=== PATIENT | female | born 1940 | race Caucasian/White ===

== ENCOUNTER 2019-04-08 17:59 | Inpatient (IN) | payer OTHER ==
[~2019-04-08] VITALS: Ht 165.1 cm; Wt 85.7 kg
[2019-04-08 18:06] VITALS: BP_SYST 132
--- NOTE | 2019-04-08 18:06 | NUR ---
Pt arrived via ALS with [facility]. Pt triaged and placed in ED bed 2. Rails up. Pt placed on monitor, VSS.
--- NOTE | 2019-04-08 18:10 | NUR ---
Pt brought in by ALS ambulance. [facility] states that the patient last known well time was approx 8am per family. Family stated that they returned approx 530pm to find patient ALOC. [facility] states that pt was given glucagon en route due to blood sugar of 59 on scene and unable to obtain IV access. Pt arousable to speach, but is confused. Pt denies pain. Pt denies pain. Pt has small 1"x1" sore on anterior surface of ankle. Pt vss, resting in bed 2 attached to cardiac, pulse oximetry and bp monitor. Will continue to monitor.
--- NOTE | 2019-04-08 18:25 | NUR ---
ER Dr. MARQUEZ at bedside examining patient.
--- NOTE | 2019-04-08 18:30 | NUR ---
# 20 gauge angiocath placed to RIGHT WRIST. Use of asceptic technique. Opsite placed over site. Blood return noted. Blood for lab drawn from site. Flushed with 10 cc of normal saline. No evidence of infiltration noted. Patient tolerated well.
--- NOTE | 2019-04-08 18:47 | NUR ---
# 14 FR In and Out catheter with use of sterile technique. Immediate return of 250 ml CLOUDY YELLOW AND FOUL SMELLING URINE noted. Urine sample collected and sent to lab. Pt tolerated procedure WELL Patient unable to toilet self.
[2019-04-08 19:03] LABS: BASOPHILS % (AUTO) 0.6 % (0.0-2.0); HEMOGLOBIN 9.7 g/dL (12.0-16.0); LYMPHOCYTES # (AUTO) 0.4 K/uL (1.0-5.5); LYMPHOCYTES % (AUTO) 9.1 % (20.5-51.5); MEAN CORPUSCULAR HEMOGLOBIN 30 pg (27-31); MEAN CORPUSCULAR HGB CONC 32 % (32-36); MEAN CORPUSCULAR VOLUME 92 fL (79.0-98.0); MONOCYTES # (AUTO) 0.1 K/uL (0.0-1.0); MONOCYTES % (AUTO) 2.3 % (1.7-9.3); NEUTROPHILS # (AUTO) 3.9 K/uL (1.8-7.7); PLATELET COUNT (AUTO) 265 K/uL (130-430); RED BLOOD CELL COUNT(AUTO) 3.27 MIL/uL (4.2-6.2); RED CELL DISTRIBUTION WIDTH 16.2 % (9.0-15.0); WHITE BLOOD COUNT (AUTO) 4.4 K/uL (4.8-10.8)
[2019-04-08 19:12] LABS: ANION GAP 11 (5-15); CALCIUM 8.8 mg/dL (8.4-11.0); CHLORIDE 105 mmol/L (98-107); CREATININE 3.34 mg/dL (0.55-1.30); GLUCOSE 117 mg/dL (70-99); POTASSIUM 3.8 mmol/L (3.5-5.1); SODIUM SERUM 138 mmol/L (136-145); UREA NITROGEN, BLOOD 60 mg/dL (8-21)
[2019-04-08 19:15] LABS: PROTHROMBIN TIME 10.1 SECS (9.5-12.5)
[2019-04-08 19:16] LABS: BILIRUBIN,URINE NEGATIVE (NEGATIVE); BLOOD, URINE 3+ (NEGATIVE); CLARITY/URINE CLOUDY (CLEAR); COLOR,URINE YELLOW (YELLOW); GLUCOSE,URINE NEGATIVE (NEGATIVE); KETONES,URINE NEGATIVE (NEGATIVE); LEUKOCYTE ESTERASE ,URINE 3+ (NEGATIVE); NITRITE, URINE NEGATIVE (NEGATIVE); PH,URINE 5.5 (5.0-8.0); PROTEIN URINE 2+ (NEGATIVE); UROBILINOGEN,URINE 0.2 (0.2-1.0)
[2019-04-08 19:18] LABS: ALANINE AMINOTRANSFERASE 14 U/L (12-78); ALBUMIN 2.8 g/dL (3.4-4.8); ASPARTATE AMINOTRANSFERASE 15 U/L (10-37); TOTAL BILIRUBIN 0.2 mg/dL (0.0-1.0)
[2019-04-08] MEDS ORDERED: cefTRIAXone 1 GM IVPB PREMIX 50 ML IV ONE (19:30)
--- NOTE | 2019-04-08 19:30 | NUR ---
Pt son visited shortly and had to leave, left phone number for contact [phone] (Jasper)
[2019-04-08 19:44] LABS: BACTERIA,URINE MANY /HPF (None Seen); WBC,URINE >100 /HPF (0-3)
[2019-04-08 19:45] LABS: MUCUS,URINE None Seen /LPF (None Seen)
[2019-04-08] MEDS ORDERED: GABA-529 PO (19:57)
--- NOTE | 2019-04-08 19:57 | NUR ---
Medication reconciliation completed with information provided by Patient's son. Patient does not know dosages of medications. Will call at a later time with dosages. Any prior medication reconciliation on file was reviewed and corrected.
--- NOTE | 2019-04-08 20:03 | NUR ---
Patient will be admitted to care of Dr. Duncan. Admitted to MedSurg unit. Will go to room 102A. Belongings list completed. Summary report printed. Report will be given at bedside.
--- NOTE | 2019-04-08 20:10 | NUR ---
Report given bedside to IBIS Dorsey. All care endorsed.
--- NOTE | 2019-04-08 20:31 | NUR ---
ADMISSION NOTES ADMITTED PATIENT FROM ER 78 Y/O FEMALE FOR RENAL FAILURE. PATIENT ORIENTED TO NAME ONLY AT THIS TIME. PATIENT ORIENTED TO ROOM, CALL LIGHT SYSTEM AND BED CONTROLS. BED IN LOWEST LOCKED POSITION WITH ALARM ON. CALL LIGHT WITH IN REACH. Addendum: 04/08/19 at 2033 by Racheal Navarro RN WRONG TIME PATIENT CAME @ 2011
[2019-04-08 20:34] VITALS: BP_SYST 119
[2019-04-08] MEDS ORDERED: MAGNESIUM SULFATE 50 ML IV PRN (20:45)
[2019-04-08] MEDS ORDERED: ZOLPIDEM TARTRATE 5 MG TABLET PO PRN (20:45)
[2019-04-08] MEDS ORDERED: LORazepam 2 MG/ML VIAL IVP PRN (20:45)
[2019-04-08] MEDS ORDERED: POTASSIUM CHLORIDE 20 MEQ TAB.PRT.SR PO PRN (20:45)
[2019-04-08] MEDS ORDERED: DOCUSATE SODIUM 100 MG CAPSULE PO PRN (20:45)
[2019-04-08] MEDS ORDERED: ONDANSETRON HCL 4 MG/2 ML VIAL IVP PRN (20:45)
[2019-04-08] MEDS ORDERED: MORPHINE 2 MG/ML INJ. SYRINGE IVP PRN ×2 (20:45)
[2019-04-08] MEDS ORDERED: ACETAMINOPHEN 325 MG TABLET PO PRN (20:45)
[2019-04-08] MEDS ORDERED: MUPIROCIN 2% TOPICAL OINTMENT 22 GM NS PRN (20:45)
--- NOTE | 2019-04-08 20:59 | NUR ---
CONSULTATION PAGED/CALLED Reason for Consultation: RENAL FAILURE Person Who was Notified: SAMANTA Consulting Physician: ISSAC DOLAN IS CONTINUOUS PICKLING LINE PICKLER Ophthalmic Tech Specialty: Ordering Physician: FREDDY
--- NOTE | 2019-04-08 21:30 | NUR ---
NOTES: report given to me by nurse Racheal, admission from ER for altered level opf consciousness, low blood sugar Diagnosis of Renal Failure. pt. sleeping at this time, no acute distress. call light at bedside.
[2019-04-08] MEDS: D5NS 1,000 ML IV SCH (21:39)
[2019-04-08] MEDS: HEPARIN SODIUM,PORCINE 5000 UNITS/ML VIAL SUBCUT SCH (21:48)
--- NOTE | 2019-04-08 22:00 | NUR ---
NOTES: pt. awakened, reoriented. verbally responsive. BS checked 81, orange juice and jello given,able to tolerate. started on IVF with D5 NS @ 7occ/hr via rt. hand wrist area, ecchymosis on both hands/arms, moist wound on left leg and rt. scab on rt. foot, pictures taken. noted generalized weakness. maintain bed rest, unable to ambulate. call light at bedside, on fall risk precautions.
--- NOTE | 2019-04-08 23:46 | NUR ---
NOTES: pt. calm and sleeping when checked. HOB slight elevated. IVF patent and infusing well.
[2019-04-09 00:13] VITALS: BP_SYST 130
--- NOTE | 2019-04-09 01:47 | NUR ---
NOTES: pt. sleeping when made rounds, no acute distress. fall risk precautions, call light within reach.
--- NOTE | 2019-04-09 04:19 | NUR ---
NOTES: remain sleeping. continue to monitor.
--- NOTE | 2019-04-09 05:00 | NUR ---
NOTES: pt. incontinent, kept dry, able to turn to sides. still disoriented, oriented to place, did not know what happened. IV site redress with transparent dressing, flushing good. call light within reach.
--- NOTE | 2019-04-09 06:00 | NUR ---
NOTES: pt. went back to sleep, no complaints. needs attended.
[2019-04-09 06:18] LABS: BASOPHILS % (AUTO) 0.5 % (0.0-2.0); EOSINOPHILS % (AUTO) 0.6 % (0.0-4.0); HEMATOCRIT 26.3 % (36-48); HEMOGLOBIN 8.6 g/dL (12.0-16.0); LYMPHOCYTES # (AUTO) 1.2 K/uL (1.0-5.5); LYMPHOCYTES % (AUTO) 21.9 % (20.5-51.5); MEAN CORPUSCULAR HEMOGLOBIN 30 pg (27-31); MEAN CORPUSCULAR HGB CONC 33 % (32-36); MEAN CORPUSCULAR VOLUME 91 fL (79.0-98.0); MONOCYTES # (AUTO) 0.4 K/uL (0.0-1.0); NEUTROPHILS # (AUTO) 3.7 K/uL (1.8-7.7); PLATELET COUNT (AUTO) 241 K/uL (130-430); RED BLOOD CELL COUNT(AUTO) 2.88 MIL/uL (4.2-6.2); RED CELL DISTRIBUTION WIDTH 16.2 % (9.0-15.0); WHITE BLOOD COUNT (AUTO) 5.3 K/uL (4.8-10.8)
[2019-04-09 06:32] LABS: ANION GAP 12 (5-15); CALCIUM 8.2 mg/dL (8.4-11.0); CHLORIDE 109 mmol/L (98-107); CREATININE 3.11 mg/dL (0.55-1.30); POTASSIUM 3.8 mmol/L (3.5-5.1); SODIUM SERUM 142 mmol/L (136-145); UREA NITROGEN, BLOOD 61 mg/dL (8-21)
--- NOTE | 2019-04-09 06:45 | NUR ---
CLOSING NOTES; BS checked 50, apple juice with sugar given, pt. asymptomatic. will recheck in 15 min.
[2019-04-09 06:58] LABS: GLUCOSE 48 mg/dL (70-99)
--- NOTE | 2019-04-09 07:13 | NUR ---
NOTES: rechecked BS 65, pt. awake, gave milk with packets of sugar, Dr. Cruz here and aware of low BS. continue to monitor, will endorse to day shift.
--- NOTE | 2019-04-09 07:34 | NUR ---
Initial note: Patient is awake, alert, oriented x1, resting on bed comfortable comfortable, no sign of distress. On D5 NS IVF at 70 ml/hr infusing well via right wrist #20G, no sign of infiltration. Will continue monitor.
--- NOTE | 2019-04-09 07:38 | NUR ---
Nephro round: Dr. Cruz makes round and has new orders, including increase IVF to 100 ml/hr and change diet to regular diet.
[2019-04-09 07:44] VITALS: BP_SYST 135
[2019-04-09] MEDS: HEPARIN SODIUM,PORCINE 5000 UNITS/ML VIAL SUBCUT SCH ×2 (08:40→21:08)
--- NOTE | 2019-04-09 09:32 | NUR ---
Nutrition Update Vivek Scale 14 noted. Pt admitted for renal failure Diet: regular BMI: 36.9kg/m2 RD to follow per nutrition care standards.
--- NOTE | 2019-04-09 10:24 | NUR ---
round: Dr. Duncan makes round and has new orders. Inform him for Accu check after breakfast =163, and will recheck before lunch time.
[2019-04-09] MEDS: D5NS 1,000 ML IV SCH ×2 (10:42→20:56)
[2019-04-09] MEDS: INSULIN REGULAR, HUMAN 100 UNITS/ML, 10 ML VIAL (humuLIN R) SUBCUT PRN ×2 (11:37→21:07)
[2019-04-09 12:00] VITALS: BP_SYST 131
--- NOTE | 2019-04-09 13:00 | NUR ---
PT: Physical therapist has seen the patient . Patient is maximum assist.
--- NOTE | 2019-04-09 16:00 | NUR ---
PM care: Patient has BM incontinent. Give her a complete bed bath, and linen changed.
[2019-04-09 16:43] VITALS: BP_SYST 158
--- NOTE | 2019-04-09 18:32 | NUR ---
Closing note: Patient is stable, tolerating regular diet well, BS controlled. On D5 NS IVF at 100 ml/hr infusing well, no sign of infiltration.
[2019-04-09 19:00] VITALS: BP_SYST 108
--- NOTE | 2019-04-09 19:15 | NUR ---
change of shift.p.presents quiescent affect;calm,viewing tv programming.pt.presents loc;confused.pt.present diabetic med-hx; pt.has presented low blood glucose values.diet status changed;regular diet;foods;preventive measure.to continue to monitor blood glucose:ac/hs.iv fluids infusing.general status stable.respiratory status stable@room air;unlabored.call light/telephone w/in reach of the pt.
[2019-04-09 20:00] VITALS: BP_SYST 108
--- NOTE | 2019-04-09 20:00 | NUR ---
pt.assessed.v/s assessed:values w/in normal limits.i have posted q's to the pt.pt.presents no verbal response.i have posited the q's austrian/south korean.pt.assessed for cleanlines.pt.repositioned./iv access;intact;patent.iv fluids infusing.general status stable,respiratory status stable;unlabored.02-sat+96%.call light/telephone placed w/in reach of the pt.
--- NOTE | 2019-04-09 20:30 | NUR ---
i have assessed the blood glucose:value;213mg/dl.
[2019-04-09] MEDS: cefTRIAXone 1 GM in D5W 50 ML IV SCH (20:56)
--- NOTE | 2019-04-09 21:00 | NUR ---
2100pmedications administered.i have administered insulin;regular;4-units 2/t sliding scale parameters.i have administered. heparin;5ku sq.
--- NOTE | 2019-04-09 22:00 | NUR ---
pt.assessed.pt.presents quiescent affect;calm,somnolent.flacc;pain mgx.pt.absent facial grimaces/body posturing.pt.assessed for cleanliness.pt.repositioned.iv access;intact;patent.iv fluids infusing.general status stable.respiratory status stable;unlabored.call light/telephone placed w/in reach of the pt.
--- NOTE | 2019-04-10 | NUR ---
pt.assessed.v/s assessed;values w/in normal limits.pt.presents quiescent affect;calm,somnolent;flacc;pain mgx;pt.absent facial grimaces/ body posturing.pt.assessed for cleanliness.pt.repositioned.iv access;intact;patent.general status stable.respiratory status stable;unlabored.call light/telephone placed w/in reach of the pt.
[2019-04-10 00:02] VITALS: BP_SYST 122
--- NOTE | 2019-04-10 02:00 | NUR ---
pt.assessed.pt.presents quiescent affect;calm,somnolent.pt.assessed for cleanliness.pt.repositioned.iv access;intact;patent; iv fluids infusing general status stable.respiratory status stable.unlabored call light/telephone placed w/in reach of the pt. Addendum: 04/10/19 at 0219 by Bakari Aguilar RN per flacc;pain mgx;pt.absent facial grimaces/body posturing.
--- NOTE | 2019-04-10 04:00 | NUR ---
pt.assessed.pt.presents quiescent affect;calm,somnolent.pt.assessed for cleanliness.pt.repositioned.iv access;intact;patent. iv fluids infusing. general status stable.respiratory status stable;unlabored call light/telephone placed w/in reach of the pt.
[2019-04-10] MEDS: D5NS 1,000 ML IV SCH ×2 (05:24→08:31)
--- NOTE | 2019-04-10 06:19 | NUR ---
pt.assessed.pt.presents quiescent affect;calm,somnolent.pt.repositioned,blood glucose value:90mg/dl. iv fluids infusing.call light/telephone placed w/in reach of the pt.
[2019-04-10 07:05] LABS: ANION GAP 10 (5-15); CHLORIDE 114 mmol/L (98-107); CREATININE 2.79 mg/dL (0.55-1.30); GLUCOSE 82 mg/dL (70-99); POTASSIUM 3.7 mmol/L (3.5-5.1); SODIUM SERUM 144 mmol/L (136-145); UREA NITROGEN, BLOOD 50 mg/dL (8-21)
[2019-04-10 07:09] LABS: BASOPHILS % (AUTO) 1.2 % (0.0-2.0); EOSINOPHILS # (AUTO) 0.1 K/uL (0.0-0.4); EOSINOPHILS % (AUTO) 2.8 % (0.0-4.0); HEMATOCRIT 27.1 % (36-48); HEMOGLOBIN 8.8 g/dL (12.0-16.0); LYMPHOCYTES % (AUTO) 29.5 % (20.5-51.5); MEAN CORPUSCULAR HEMOGLOBIN 30 pg (27-31); MEAN CORPUSCULAR HGB CONC 32 % (32-36); MEAN CORPUSCULAR VOLUME 91 fL (79.0-98.0); MONOCYTES # (AUTO) 0.2 K/uL (0.0-1.0); NEUTROPHILS # (AUTO) 2.1 K/uL (1.8-7.7); NEUTROPHILS % (AUTO) 59.5 % (40.0-70.0); PLATELET COUNT (AUTO) 231 K/uL (130-430); RED BLOOD CELL COUNT(AUTO) 2.97 MIL/uL (4.2-6.2); RED CELL DISTRIBUTION WIDTH 16.5 % (9.0-15.0); WHITE BLOOD COUNT (AUTO) 3.5 K/uL (4.8-10.8)
--- NOTE | 2019-04-10 08:00 | NUR ---
NEURO Patient alert/oriented x2 ,denies any pain , on continues IV hydration due to elevated BUN/Creatinine., plan of care , safety discussed with patient, needs attended.
[2019-04-10 08:08] VITALS: BP_SYST 140
[2019-04-10] MEDS: HEPARIN SODIUM,PORCINE 5000 UNITS/ML VIAL SUBCUT SCH ×2 (08:25→20:35)
--- NOTE | 2019-04-10 10:00 | NUR ---
Wound care left lower leg completed denies any pain, documented in the flow sheet.
[2019-04-10] MEDS: INSULIN REGULAR, HUMAN 100 UNITS/ML, 10 ML VIAL (humuLIN R) SUBCUT PRN ×3 (11:34→20:45)
--- NOTE | 2019-04-10 12:10 | NUR ---
Received report from Carey who endorsed patient to me, patient is resting in bed, eyes closed breathing easy and nonlabored, IV fluids running, fall/safety precautions in place.
[2019-04-10 13:02] VITALS: BP_SYST 155
--- NOTE | 2019-04-10 13:57 | NUR ---
CONSULTATION PAGED/CALLED Reason for Consultation: HYDRONEPHROSIS Person Who was Notified: SPOKE TO RICHARD FROM OFFICE. Consulting Physician: [employer] Inspector Specialty: UROLOGY Ordering Physician:
--- NOTE | 2019-04-10 14:04 | NUR ---
Dietitian Recommendations * Recommend [facility] diet w/ Glucerna BID (ONS provides 440 kcal/day, 20 gm protein/day) LEEANNE, RD Please refer to Nutrition Assessment foe details. Addendum: 04/10/19 at [address] Amended: Links added.
--- NOTE | 2019-04-10 14:30 | NUR ---
rounds patient is resting in bed, patient asked for chocolate milk but I told her that the cafeteria does not have any, patient verbalized and said she doesn't need anything else at this time, IV fluids running, fall/safety precautions in place.
--- NOTE | 2019-04-10 15:10 | NUR ---
spoke to REYNA Gan in regards to urology consult, gave him information on patient, he said he will call back to see if they accept the patient or not.
--- NOTE | 2019-04-10 16:57 | NUR ---
spoke to Dr Duncan in regards to the urology consult being denies, informed me to update Dr Vargas on the response. Addendum: 04/10/19 at 1701 by Muna Fisher RN Dr Vargas called back updated her on the urology response, I also informed her about the urine culture results, no new orders.
[2019-04-10 17:08] VITALS: BP_SYST 158
--- NOTE | 2019-04-10 17:10 | NUR ---
accuchek accuchek done and sliding scale needed at this time, patient verbalized understanding, patient tolerated well, no other needs at this time, fall/safety precautions in place.
--- NOTE | 2019-04-10 18:42 | NUR ---
CLOSING NOTE patient is resting in bed, IV fluids running, no signs of distress, no needs at this time, fall/safety precautions in place, will endorse report to noc shift nurse to continue with care, patient's urology consult was denied and Dr Duncan and Dr Vargas are aware of it.
--- NOTE | 2019-04-10 19:10 | NUR ---
CHANGE OF SHIFT; pt. awake, alert but still disoriented. follows simple commands. maintained bed rest. IVF via rt. arm. denies any pain at this time, fall risk precautions, bed alarm on, call light at bedside. will reassess later.
[2019-04-10 20:30] VITALS: BP_SYST 148
--- NOTE | 2019-04-10 20:30 | NUR ---
NOTES: remains awake, on high fowlers position. reoriented, moves upper extremities but weak on lower extremities. bruising on both arms/hands. left lower ant calf with wound, and scab on rt.foot. IVF patent. pt. repositioned.
[2019-04-10] MEDS: cefTRIAXone 1 GM in D5W 50 ML IV SCH (20:33)
--- NOTE | 2019-04-10 21:00 | NUR ---
NOTES: BS checked 195 with sliding scale coverage. due meds given.
--- NOTE | 2019-04-10 22:00 | NUR ---
NOTES: pt. incontinent of urine, changed and kept dry. condition observed.
[2019-04-10 22:38] VITALS: BP_SYST 145
--- NOTE | 2019-04-11 00:15 | NUR ---
NOTES: pt. sleeping when checked, continue to monitor.
--- NOTE | 2019-04-11 02:30 | NUR ---
NOTES: pt. repositioned, HOB pretty elevated. awakened and went back to sleep.
[2019-04-11] MEDS: D5NS 1,000 ML IV SCH ×2 (03:07→11:34)
--- NOTE | 2019-04-11 04:08 | NUR ---
NOTES: condition unchanged, continue to monitor. IVF patent.
--- NOTE | 2019-04-11 06:00 | NUR ---
NOTES: repositioned and went back to sleep, needs attended.
--- NOTE | 2019-04-11 06:36 | NUR ---
CLOSING NOTES; pt. still sleeping, BS checked 106, no sliding scale needed. IVF patent. no acute distress. turn to sides. for further care and assistance. call light at bedside. bed alarm on. fall precautions in place.
--- NOTE | 2019-04-11 07:35 | NUR ---
opening note patient is resting in bed, patient able to state name but not , assessment completed, educated front office spec light system and plan of care, patient nodded head and said "okay", IV fluids running, no signs of distress, no needs addressed at this time, fall/safety precautions in place.
[2019-04-11 08:04] VITALS: BP_SYST 148
[2019-04-11] MEDS: HEPARIN SODIUM,PORCINE 5000 UNITS/ML VIAL SUBCUT SCH ×2 (08:18→20:43)
[2019-04-11 08:27] LABS: EOSINOPHILS # (AUTO) 0.1 K/uL (0.0-0.4); EOSINOPHILS % (AUTO) 2.6 % (0.0-4.0); HEMATOCRIT 26.5 % (36-48); HEMOGLOBIN 8.6 g/dL (12.0-16.0); LYMPHOCYTES # (AUTO) 0.9 K/uL (1.0-5.5); LYMPHOCYTES % (AUTO) 26.3 % (20.5-51.5); MEAN CORPUSCULAR HEMOGLOBIN 30 pg (27-31); MEAN CORPUSCULAR HGB CONC 32 % (32-36); MEAN CORPUSCULAR VOLUME 92 fL (79.0-98.0); MONOCYTES # (AUTO) 0.3 K/uL (0.0-1.0); MONOCYTES % (AUTO) 7.4 % (1.7-9.3); NEUTROPHILS # (AUTO) 2.2 K/uL (1.8-7.7); NEUTROPHILS % (AUTO) 62.7 % (40.0-70.0); PLATELET COUNT (AUTO) 213 K/uL (130-430); RED CELL DISTRIBUTION WIDTH 16.5 % (9.0-15.0); WHITE BLOOD COUNT (AUTO) 3.5 K/uL (4.8-10.8)
[2019-04-11 08:55] LABS: ANION GAP 9 (5-15); CALCIUM 7.9 mg/dL (8.4-11.0); CHLORIDE 116 mmol/L (98-107); CREATININE 2.53 mg/dL (0.55-1.30); GLUCOSE 120 mg/dL (70-99); POTASSIUM 3.8 mmol/L (3.5-5.1); SODIUM SERUM 146 mmol/L (136-145); UREA NITROGEN, BLOOD 40 mg/dL (8-21)
[2019-04-11] MEDS ORDERED: METO25TA6 PO (09:29)
[2019-04-11] MEDS: METOPROLOL TARTRATE 25 MG TABLET PO SCH ×2 (09:33→20:43)
[2019-04-11] MEDS ORDERED: cefTRIAXone 1 GM IVPB PREMIX 50 ML IV ONE (09:45)
--- NOTE | 2019-04-11 10:35 | NUR ---
called the patient's son to inform him that the patient can be discharged today, the son told me that he is out of state until tomorrow and he is the only one that can pick her up, CM and Dr Duncan were made aware of this and Dr Duncan said to hold discharge until tomorrow when the son can pick her up, I informed the patient that I talked to her son, no other needs at this time.
--- NOTE | 2019-04-11 10:35 | NUR ---
yard hostler: Nurse Muna aware of discharge order after 3rd dose of IV Rocephin-I requested Muna to call family to make them aware of discharge-Muna called me back to inform me son is out of town-no other family available-unsafe discharge to send pt home alone-Nurse Toro will update Dr. Duncan.
[2019-04-11] MEDS: INSULIN REGULAR, HUMAN 100 UNITS/ML, 10 ML VIAL (humuLIN R) SUBCUT PRN ×3 (11:37→20:49)
--- NOTE | 2019-04-11 12:26 | NUR ---
rounds patient is eating her lunch, IV fluids running, no needs addressed at this time, fall/safety precautions in place.
[2019-04-11 12:52] VITALS: BP_SYST 153
[2019-04-11] MEDS: D5/0.45 NS 1,000 ML IV SCH (13:32)
--- NOTE | 2019-04-11 14:34 | NUR ---
rounds patient is resting in bed, IV fluids running, no signs of distress, no needs addressed at this time, fall/safety precautions in place.
--- NOTE | 2019-04-11 16:38 | NUR ---
patient is resting in bed IV fluids running, no signs of distress, no needs addressed at this time, fall/safety precautions in place.
[2019-04-11 17:01] VITALS: BP_SYST 158
--- NOTE | 2019-04-11 19:22 | NUR ---
CLOSING NOTE patient is resting in bed, IV fluids running, no signs of distress, no needs at this time, fall/safety precautions in place, will endorse report to [facility] shift nurse to continue with care and patient will be discharged tomorrow when the son comes back, a new urology consult was put for Dr Olivarez because Dr Mares denied the consult because he cannot follow up with patient, Dr Phillip is aware.
--- NOTE | 2019-04-11 19:25 | NUR ---
CHANGE OF SHIFT; pt. awake, alert, resting , no acute distress. safety measures in place. bed alarm on, call light within reach.
[2019-04-11] MEDS: cefTRIAXone 1 GM in D5W 50 ML IV SCH (20:15)
[2019-04-11 20:30] VITALS: BP_SYST 167
--- NOTE | 2019-04-11 20:30 | NUR ---
NOTES: pt. awake, alert, reoriented. IVF infusing via rt. forearm, able to move extremities but pretty weak. noted bruising on both arms, and left leg wound dressing intact. repositioned.
--- NOTE | 2019-04-11 21:30 | NUR ---
NOTES: BS checked with sliding scale coverage. due po med taken well. no complaints.
--- NOTE | 2019-04-11 23:00 | NUR ---
NOTES: condition unchanged. dozing on and off.
[2019-04-11 23:41] VITALS: BP_SYST 155
[2019-04-12] MEDS: D5/0.45 NS 1,000 ML IV SCH ×3 (00:22→21:09)
--- NOTE | 2019-04-12 00:30 | NUR ---
NOTES: made rounds and pt. sleeping. IV bag changed. bed alarm on.
--- NOTE | 2019-04-12 02:44 | NUR ---
NOTES: condition unchanged, continue to monitor.
--- NOTE | 2019-04-12 04:28 | NUR ---
NOTES: pt. sleeping when checked. no complaints manifested.
--- NOTE | 2019-04-12 05:30 | NUR ---
NOTES: am care and kristy care done, incontinent of urine. repositioned. IVF patent. no complaints manifested. safety measures in place. bed alarm on.
--- NOTE | 2019-04-12 06:30 | NUR ---
CLOSING NOTES; BS checked 127, no sliding scale coverage. slightly awakened but went back to sleep. no complaints of discomfort. kept comfortable with blanket. IV site patent and intact with same IVF of D5 1/2 NS @ 100 cc/hr. on room air. for further care and assistance. schedule to go home today, will be pickle maker by her son. discharge instructions initiated, will endorse to day shift. call light within reach.
[2019-04-12 07:05] LABS: BASOPHILS % (AUTO) 1.2 % (0.0-2.0); EOSINOPHILS # (AUTO) 0.1 K/uL (0.0-0.4); EOSINOPHILS % (AUTO) 3.1 % (0.0-4.0); HEMATOCRIT 26.3 % (36-48); HEMOGLOBIN 8.6 g/dL (12.0-16.0); LYMPHOCYTES # (AUTO) 1.2 K/uL (1.0-5.5); LYMPHOCYTES % (AUTO) 31.7 % (20.5-51.5); MEAN CORPUSCULAR HEMOGLOBIN 30 pg (27-31); MEAN CORPUSCULAR HGB CONC 33 % (32-36); MEAN CORPUSCULAR VOLUME 92 fL (79.0-98.0); MONOCYTES # (AUTO) 0.3 K/uL (0.0-1.0); NEUTROPHILS # (AUTO) 2.1 K/uL (1.8-7.7); PLATELET COUNT (AUTO) 201 K/uL (130-430); RED BLOOD CELL COUNT(AUTO) 2.86 MIL/uL (4.2-6.2); RED CELL DISTRIBUTION WIDTH 16.4 % (9.0-15.0); WHITE BLOOD COUNT (AUTO) 3.8 K/uL (4.8-10.8)
--- NOTE | 2019-04-12 07:20 | NUR ---
OPENING NOTES: RECEIVED PATIENT FROM SOFTWARE QA MANAGER NURSE. PATIENT IS ASLEEP IN BED. NO SIGNS OF DISTRESS OR SHORTNESS OF BREATH. PATIENT IS TOLERATING OXYGEN AT ROOM AIR. IV SITE IS PATENT WITH NO SIGNS OF INFILTRATION AND RUNNING FLUIDS ORDERED. PATIENT IN STABLE CONDITION. SAFETY, FALL AND ASPIRATION PRECAUTIONS ARE IN PLACE. BED LOCKED IN LOWEST POSITION WITH CALL LIGHT IN REACH. WILL CONTINUE TO MONITOR PATIENT FOR ANY CHANGES.
[2019-04-12 07:31] LABS: ANION GAP 10 (5-15); CALCIUM 7.9 mg/dL (8.4-11.0); CHLORIDE 113 mmol/L (98-107); CREATININE 2.32 mg/dL (0.55-1.30); GLUCOSE 132 mg/dL (70-99); POTASSIUM 3.7 mmol/L (3.5-5.1); SODIUM SERUM 144 mmol/L (136-145); UREA NITROGEN, BLOOD 34 mg/dL (8-21)
[2019-04-12 08:27] VITALS: BP_SYST 178
[2019-04-12] MEDS: METOPROLOL TARTRATE 25 MG TABLET PO SCH ×2 (08:40→21:06)
[2019-04-12] MEDS: HEPARIN SODIUM,PORCINE 5000 UNITS/ML VIAL SUBCUT SCH ×2 (08:44→21:11)
--- NOTE | 2019-04-12 10:20 | NUR ---
RN ROUNDS: PATIENT IS ASLEEP IN BED. NO SIGNS OF DISTRESS OR SHORTNESS OF BREATH NOTED. PATIENT IN STABLE CONDITION. WILL CONTINUE TO MONITOR PATIENT FOR ANY CHANGES.
[2019-04-12] MEDS: INSULIN REGULAR, HUMAN 100 UNITS/ML, 10 ML VIAL (humuLIN R) SUBCUT PRN ×2 (11:56→21:11)
[2019-04-12 12:07] VITALS: BP_SYST 151
--- NOTE | 2019-04-12 12:30 | NUR ---
RN ROUNDS: PATIENT IS AWAKE AND ALERT x1. PATIENT DENIES ANY PAIN AT THE MOMENT. NO SIGNS OF DISTRESS OR SHORTNESS OF BREATH NOTED. PATIENT IN STABLE CONDITION. WILL CONTINUE TO MONITOR PATIENT FOR ANY CHANGES. Addendum: 04/12/19 at 1400 by Zoë Cano RN provided pt with reality orientation
--- NOTE | 2019-04-12 14:20 | NUR ---
RN ROUNDS: PATIENT IS AWAKE AND ALERT x 1. PATIENT DENIES ANY PAIN. NO SIGNS OF DISTRESS OR SHORTNESS OF BREATH NOTED. PATIENT IN STABLE CONDITION. WILL CONTINUE TO MONITOR PATIENT FOR ANY CHANGES.
[2019-04-12 14:33] VITALS: BP_SYST 163
--- NOTE | 2019-04-12 16:30 | NUR ---
RN ROUNDS: PATIENT IS AWAKE AND ALERT x1 WATCHING TELEVISION IN BED. PATIENT INFORMED THAT HER SON WILL BE COMING TO PICK HER UP TONIGHT. PATIENT DENIES ANY PAIN AT THE MOMENT. NO SIGNS OF DISTRESS OR SHORTNESS OF BREATH. PATIENT IN STABLE CONDITION. WILL CONTINUE TO MONITOR PATIENT FOR ANY CHANGES.
[2019-04-12 16:35] VITALS: BP_SYST 143
--- NOTE | 2019-04-12 17:52 | NUR ---
PHYSICAL THERAPY CO-SIGN The Physical Therapy Progress Notes documented by Document Management Analyst have been reviewed. Reviewed/Co-Signed by: Colleen Buchanan PT Documentation Done by:SADI MCDONOUGH CONSUMER RECRUITER POC REVIEWED W/ CONSUMER RECRUITER; WILL BENEFIT W/ P.T. POST ACUTE STAY 04/12/19 Hgb=8.6 Addendum: 04/12/19 at 1753 by Colleen Buchanan PT Amended: Links added.
--- NOTE | 2019-04-12 18:50 | NUR ---
CLOSING NOTES: PATIENT IS AWAKE AND ALERT x1 IN BED. PATIENT DENIES ANY PAIN. NO SIGNS OF DISTRESS OR SHORTNESS OF BREATH NOTED. IV SITE IS PATENT WITH NO SIGNS OF INFILTRATION. PATIENT IS TOLERATING OXYGEN AT ROOM AIR. PATIENT IN STABLE CONDITION. SAFETY, FALL AND ASPIRATION PRECAUTIONS ARE IN PLACE. BED LOCKED IN LOWEST POSITION WITH CALL LIGHT IN REACH. WILL ENDORSE PATIENT CARE TO ONCOMING POLYTECHNIC REGISTRAR NURSE.
[2019-04-12] MEDS: cefTRIAXone 1 GM in D5W 50 ML IV SCH (19:37)
[2019-04-12 20:13] VITALS: BP_SYST 151
--- NOTE | 2019-04-12 21:41 | NUR ---
Spoke with patient's son: Patient's son Jasper Gracia was called at [phone] for an estimated pick-up time. Son stated that he is currently driving back from [place] and is in [place], still 2 hrs away from [place]. He asked if it was possible to pick his mother up first thing in the morning tomorrow. Son was informed that insurance will not cover his mother's hospital stay past 12AM, and that the remainder of the stay will be paid out of pocket. Son stated that he will do his best to arrive before 12AM.
--- NOTE | 2019-04-13 00:10 | NUR ---
D/C Patient Patient son given medication reconciliation form and D/C instructions. Exit Care provided. Patient verbalized understanding. MD discussed with patient the results and treatment provided. Dicharged to home via wheelchair. Patient in stable condition, ID band removed. IV catheter removed, intact and dressing applied, no active bleeding. Patient educated on pain management. All belongings sent with patient.
== END 2019-04-13 00:10 | disposition home or self-care (01) | DRG 682 ==
LOC: SED 17:59 → SMU 20:00
PROVIDERS: ADMIT General Practice; ATTEND General Practice
DX: N17.0 Acute kidney failure with tubular necrosis (principal); E43 Unspecified severe protein-calorie malnutrition; E11.649 Type 2 diabetes mellitus with hypoglycemia without coma; N13.6 Pyonephrosis; F02.80 Dementia in other diseases classified elsewhere, unspecified severity, without behavioral disturbance, psychotic disturbance, mood disturbance, and anxiety; E66.9 Obesity, unspecified; G30.9 Alzheimer's disease, unspecified; D63.8 Anemia in other chronic diseases classified elsewhere; B96.20 Unspecified Escherichia coli [E. coli] as the cause of diseases classified elsewhere; Z74.01 Bed confinement status; Z86.73 Personal history of transient ischemic attack (TIA), and cerebral infarction without residual deficits; Z68.31 Body mass index [BMI] 31.0-31.9, adult; Z79.899 Other long term (current) drug therapy; Z88.8 Allergy status to other drugs, medicaments and biological substances
CPT/HCPCS: 36415; 71045; 76770; 80048; 80053; 81000-TC; 82962; 83036; 83605; 83735-TC; 84443-TC; 84484; 85025; 85610-TC; 85730-TC; 87040-TC; 87086; 87186-TC; 93005; 96365; 97110-GP; 97530-GP; 99285; J0696; J1644; J1815; J7042; J7060

== ENCOUNTER 2019-05-02 19:44 | Inpatient (IN) | payer OTHER ==
[~2019-05-02] VITALS: Ht 162.6 cm; Wt 96.7 kg
[2019-05-02 19:44] VITALS: BP_SYST 152
[~2019-05-02 19:44] MED LIST: GABA-529 PO; METO25TA6 PO
--- NOTE | 2019-05-02 19:44 | NUR ---
Deb so in EDM - 05/02/19 at 2019 by ALEE Pt DARIO VIVAR, placed to ER bed 01, to debbie, to traffic monitor specialist. Pt report given to IBIS Ramirez.
--- NOTE | 2019-05-02 20:05 | NUR ---
Pt BIB ALS, placed to ER bed 01, to gown, to business professor. Pt report given to IBIS Ramirez.
--- NOTE | 2019-05-02 20:05 | NUR ---
Patient to ER bed 1 to gown for evaluation. Side rails up.
--- NOTE | 2019-05-02 20:10 | NUR ---
Dr. Perdomo bedside for Pt eval
--- NOTE | 2019-05-02 20:11 | NUR ---
Pt BIBA from home to ED C/O hypoglycemia today. Per paramedics, patient was at home and found by family to be unresponsive this after noon. Per paramedics, Pt's last meal was during lunch, patient ate mashed potatoes and gravy. Patient only responded to painful stimuli. Pt's blood sugar on scene was 46. Pt was treated with D10 en route and improved blood sugar to 230. Pt currently takes Glipizide 5mg for her DM. No other complaints and or injuries noted VSS with baseline HR mild srinivas. No s/s of acute distress. Resting on gurney rails up
--- NOTE | 2019-05-02 20:15 | NUR ---
Portable X Ray bedside, well tolerated
[2019-05-02 20:29] LABS: BASOPHILS % (AUTO) 0.8 % (0.0-2.0); EOSINOPHILS # (AUTO) 0.1 K/uL (0.0-0.4); EOSINOPHILS % (AUTO) 1.6 % (0.0-4.0); HEMATOCRIT 24.9 % (36-48); HEMOGLOBIN 8.1 g/dL (12.0-16.0); LYMPHOCYTES # (AUTO) 0.7 K/uL (1.0-5.5); LYMPHOCYTES % (AUTO) 17.7 % (20.5-51.5); MEAN CORPUSCULAR HEMOGLOBIN 31 pg (27-31); MEAN CORPUSCULAR HGB CONC 33 % (32-36); MEAN CORPUSCULAR VOLUME 94 fL (79.0-98.0); MONOCYTES # (AUTO) 0.2 K/uL (0.0-1.0); MONOCYTES % (AUTO) 5.5 % (1.7-9.3); NEUTROPHILS % (AUTO) 74.4 % (40.0-70.0); PLATELET COUNT (AUTO) 180 K/uL (130-430); RED BLOOD CELL COUNT(AUTO) 2.66 MIL/uL (4.2-6.2); RED CELL DISTRIBUTION WIDTH 17.4 % (9.0-15.0)
[2019-05-02 20:37] LABS: INR 1.1 (0.8-1.2)
[2019-05-02 20:38] LABS: CHLORIDE 105 mmol/L (98-107); CREATININE 2.35 mg/dL (0.55-1.30); GLUCOSE 130 mg/dL (70-99); UREA NITROGEN, BLOOD 40 mg/dL (8-21)
[2019-05-02 20:44] LABS: ANION GAP 5 (5-15); SODIUM SERUM 137 mmol/L (136-145)
[2019-05-02 20:53] LABS: ALANINE AMINOTRANSFERASE 16 U/L (12-78); ALBUMIN 2.4 g/dL (3.4-4.8); ASPARTATE AMINOTRANSFERASE 23 U/L (10-37); THYROID STIMULATING HORMONE 2.69 uIu/mL (0.36-3.74); TOTAL BILIRUBIN 0.3 mg/dL (0.0-1.0)
[2019-05-02] MEDS ORDERED: OCTREOTIDE ACETATE 50 MCG/ML AMP SUBCUT ONE (21:00)
[2019-05-02 21:14] LABS: CALCIUM 6.9 mg/dL (8.4-11.0)
[2019-05-02] MEDS ORDERED: OCTREOTIDE ACETATE 200 MCG/1 ML 5ML VIAL ONE (22:01)
[2019-05-02] MEDS: D10W 1,000 ML IV SCH ×2 (22:03→22:40)
[2019-05-02] MEDS ORDERED: GABA-531 PO (22:12)
[2019-05-02] MEDS ORDERED: FLUO-119 PO (22:12)
[2019-05-02] MEDS ORDERED: LOSA50TA3 PO (22:12)
[2019-05-02] MEDS ORDERED: GLIP5TAB13 PO (22:12)
--- NOTE | 2019-05-02 22:12 | NUR ---
Medication reconciliation completed with information provided by patient. Any prior medication reconciliation on file was reviewed and corrected.
--- NOTE | 2019-05-02 22:48 | NUR ---
ADMISSION NOTE Received patient from ER via gurney. Patient admitted with diagnosis of Hypoglycemic Reaction. Patient is awake, alert, oriented X 1. Patient oriented to hospital room, call light, toileting, pain management and safety-teach back done. Patient informed that IBIS Quijano will be primary nurse and that their room number is 105A. Personal belongings checked and Belongings List documented. Call light within reach.
--- NOTE | 2019-05-02 22:50 | NUR ---
Admitted patient brought to room 105A via gurney by DOUBLE NEEDLE OPERATOR, bedside SBAR report received, patient resting in bed, respirations even and unlabored on 1L nasal cannula, cardiac tele monitor on, patient awake and alert to name, room close to nurses station, educated patient on use of call light and asked to call for assistance, patient verbalized understanding, call light in reach, bed in low and locked position, bed alarm on.
[2019-05-02 22:56] VITALS: BP_SYST 150
--- NOTE | 2019-05-02 23:06 | NUR ---
Endorsement bedside SBAR report given to receiving RN, patient resting in bed, no acute distress noted, room close to nurses station, call light in reach, bed in low and locked position, bed alarm on.
[2019-05-02] MEDS ORDERED: KCL 20 mEq in D5/0.45NS 1000mL 1,000 ML IV ONE (23:07)
--- NOTE | 2019-05-02 23:08 | NUR ---
Patient will be admitted to care of Dr. Araujo. Admitted to Telemetry unit. Will go to room 105. Belongings list completed. Summary report printed. Report will be given at bedside.
--- NOTE | 2019-05-02 23:08 | NUR ---
Transfer to Telemetry via ACLS protocol. Licensed nurse present. IV present no signs or symptoms of infiltration.
--- NOTE | 2019-05-02 23:08 | NUR ---
Blood sugar: Patient's blood sugar assessed, 110 at this time. No signs/symptoms of hypoglycemia noted. Will continue monitoring.
--- NOTE | 2019-05-02 23:21 | NUR ---
Dr. Araujo: Spoke with MD over phone, IV fluid orders clarified. Per MD, start patient on KCL 20 MEQ in D5 1/2 NS now. also wants blood sugar checks every 4 hours, sliding scale coverage PRN only ACHS. Verified by read-back, RN to input.
[2019-05-02] MEDS: KCL 20 mEq in D5/0.45NS 1000mL 1,000 ML IV SCH (23:29)
[2019-05-03 00:38] VITALS: BP_SYST 162
--- NOTE | 2019-05-03 01:33 | NUR ---
Rounds: Patient is asleep, no acute distress. Tolerating room air. IV fluids infusing per MD order to left wrist, no infiltration. Call light with patient. Will continue to monitor.
--- NOTE | 2019-05-03 03:48 | NUR ---
Blood sugar: Patient's blood sugar assessed, 168 at this time. No signs/symptoms of hypoglycemia noted. Will continue monitoring.
[2019-05-03 03:52] VITALS: BP_SYST 159
[2019-05-03] MEDS: INSULIN REGULAR, HUMAN 100 UNITS/ML, 10 ML VIAL (humuLIN R) SUBCUT PRN ×3 (06:30→20:10)
--- NOTE | 2019-05-03 06:39 | NUR ---
Closing note: Patient is resting in bed, no acute distress. Tolerating room air. IV fluids infusing per MD order. Blood sugar this AM is 163, administered 2 units subcutaneously. All needs met. Safety and fall precautions maintained. Hourly rounding performed throughout shift. Will endorse care to dayshift RN.
--- NOTE | 2019-05-03 06:58 | NUR ---
Spoke with son: Spoke with patient's son Jasper Gracia over phone, asked if patient has received flu shot. Per son, patient has not received it, and he wants his mother to have the flu shot. Jasper was also informed that his mother had her medications with her when she arrived. Jasper stated that he will be here before 8AM to pick up and delivery driver the medications. Medications are stored in patient medication bag in med room. Will endorse to dayspadmaja BAUMANN.
--- NOTE | 2019-05-03 07:01 | NUR ---
Nutrition Update Vivek Scale 15 noted. Pt admitted for Hypoglycemic Reaction Diet: [facility] BMI: 34.3 kg/m2 RD to follow per nutrition care standards.
[2019-05-03 07:03] LABS: BASOPHILS % (AUTO) 0.9 % (0.0-2.0); HEMATOCRIT 27.3 % (36-48); LYMPHOCYTES % (AUTO) 29.6 % (20.5-51.5); MEAN CORPUSCULAR HEMOGLOBIN 31 pg (27-31); MEAN CORPUSCULAR HGB CONC 33 % (32-36); MEAN CORPUSCULAR VOLUME 94 fL (79.0-98.0); MONOCYTES # (AUTO) 0.3 K/uL (0.0-1.0); NEUTROPHILS # (AUTO) 2.1 K/uL (1.8-7.7); NEUTROPHILS % (AUTO) 59.5 % (40.0-70.0); PLATELET COUNT (AUTO) 202 K/uL (130-430); RED BLOOD CELL COUNT(AUTO) 2.92 MIL/uL (4.2-6.2); RED CELL DISTRIBUTION WIDTH 17.5 % (9.0-15.0); WHITE BLOOD COUNT (AUTO) 3.5 K/uL (4.8-10.8)
--- NOTE | 2019-05-03 07:33 | NUR ---
rn opening note Report was endorsed by night nurse, patient is awake and alert, requesting water, given as requested. Patient educated nuclear weapons mechanical specialist light for assistance. Patient has call light with her. Patient is close to nurses station. All safety precautions in place. No other needs at this time. will continue to monitor.
[2019-05-03 07:39] LABS: ANION GAP 7 (5-15); CHLORIDE 103 mmol/L (98-107); CREATININE 2.33 mg/dL (0.55-1.30); GLUCOSE 186 mg/dL (70-99); SODIUM SERUM 137 mmol/L (136-145); UREA NITROGEN, BLOOD 34 mg/dL (8-21)
[2019-05-03 07:52] LABS: TOTAL IRON BIND. CAPACITY 182 ug/dL (250-450)
[2019-05-03 08:06] VITALS: BP_SYST 188
[2019-05-03] MEDS: METOPROLOL TARTRATE 25 MG TABLET PO SCH ×2 (08:14→21:08)
[2019-05-03] MEDS: FLUoxetine HCL 20 MG CAPSULE (PROzac) PO SCH (08:14)
[2019-05-03] MEDS: GABAPENTIN 300 MG CAPSULE PO SCH ×2 (08:14→21:08)
[2019-05-03 08:35] LABS: CALCIUM 7.4 mg/dL (8.4-11.0); THYROID STIMULATING HORMONE 1.41 uIu/mL (0.36-3.74)
[2019-05-03] MEDS: LOSARTAN POTASSIUM 50 MG TABLET (COZAAR) PO SCH (09:23)
--- NOTE | 2019-05-03 09:25 | NUR ---
[facility] Patients scheduled medication given as ordered. Patients son came in to visit with patient and pickling grader medication that was left. Patient is awake and alert, tolerated medication well. Patient has all safety precautions in place. Educated cloud solutions architect light for assistance. Patient has call light with her. Patient is close to nurses station. no other needs at this time. will continue to monitor.
[2019-05-03] MEDS: KCL 20 mEq in D5/0.45NS 1000mL 1,000 ML IV SCH (10:40)
--- NOTE | 2019-05-03 10:42 | NUR ---
iv fluid Patients IV fluid hang as ordered. Patient is awake and alert with confusion keeps trying to get out of bed. Educated secondary english teacher light for assistance,call light is with patient. Patient educated to stay in bed but is confused. Patient has all safety precautions in place. Patient is close to nurses station. no other needs at this time. will continue to monitor.
[2019-05-03 11:27] VITALS: BP_SYST 150
--- NOTE | 2019-05-03 11:54 | NUR ---
accu check Patients Accu check done, insulin given as ordered. Patient is awake and alert, laying in bed, no complaints at this time. Patient has all safety precautions in place.Call light is with patient educated to use for assistance, but is confused, patient is close to nurses station no other needs at this time. will continue to monitor.
--- NOTE | 2019-05-03 13:20 | NUR ---
rn rounding Patient is sitting up bed, no signs of any distress.
[2019-05-03] MEDS ORDERED: MAGNESIUM SULFATE 1 GM/2 ML VIAL IVP ONE (15:00)
[2019-05-03 15:18] VITALS: BP_SYST 147
[2019-05-03] MEDS ORDERED: MAGNESIUM SULFATE 50 ML IV ONE (16:00)
--- NOTE | 2019-05-03 17:26 | NUR ---
accu check/medication Patients scheduled medication given as ordered. Patient is awake and alert confused trying to get out of bed reoriented back to reality but is still confused. Patients accu check done. no coverage needed. Patient shows no signs of any distress,breathing is equal and non labored. Patient has no other needs at this time. Patient is close to nurse station.will continue to monitor.
--- NOTE | 2019-05-03 18:50 | NUR ---
rn closing note Patient is awake and alert, sitting up in bed. no signs of any distress, breathing is equal and no labored. Patient has all safety precautions in place. Patient is close to nurses station. Patient has no complaints at this time. Patient is stable. Patient has no other needs at this time.
[2019-05-03 20:00] VITALS: BP_SYST 141
--- NOTE | 2019-05-03 20:00 | NUR ---
Assumed care from 7A-7p RN: Patient lying in bed with hed of bed elevated to 45 degrees, Awake but confused and disoriented, Able to answer only yes or no question. Respiration even and unlabored, no sign of distress . No sign of hypo/hyperglycemic reaction noted. Total care provided, reposition for comfort.
--- NOTE | 2019-05-03 22:00 | NUR ---
Patient sleeping during rounds: Patient sleeping during rounds. No sign of distress. Able to tolerate po medication as schedule; Requires total assist with ADLS. Incontinent of bladder and bowel function, good pericare provided. Kept clean and dry at all times.
--- NOTE | 2019-05-04 | NUR ---
RN ROUNDs: Patient still sleeping but easily arousable; reposition for comfort. Will continue to monitor.
[2019-05-04 01:28] VITALS: BP_SYST 153
--- NOTE | 2019-05-04 02:00 | NUR ---
Patient resting and sleeping: Sleeping at this time; condition stable, IV fluids infusing well to right hand; IV site no s/s of infiltration; Mouth care provided. Reposition for comfort. Will continue to monitor
[2019-05-04] MEDS: KCL 20 mEq in D5/0.45NS 1000mL 1,000 ML IV SCH ×2 (02:17→14:23)
--- NOTE | 2019-05-04 04:00 | NUR ---
RN ROUNDS: Patient resting at this time, no sign of distress. Incontinent care rendered. All needs attended to. Reposition every 2 hours for comfort and to promote better circulation. No sign of hypoglycemia. Will continue to monitor.
--- NOTE | 2019-05-04 06:37 | NUR ---
Patient still sleeping: Patient still sleeping at this time, no sign of distress. Blood [id number], no coverage for regular insulin. No significant changes noted from initial assessment. Will continue to monitor
[2019-05-04 06:44] LABS: BASOPHILS % (AUTO) 1.1 % (0.0-2.0); EOSINOPHILS # (AUTO) 0.1 K/uL (0.0-0.4); EOSINOPHILS % (AUTO) 2.5 % (0.0-4.0); HEMATOCRIT 26.1 % (36-48); HEMOGLOBIN 8.5 g/dL (12.0-16.0); LYMPHOCYTES # (AUTO) 1.6 K/uL (1.0-5.5); LYMPHOCYTES % (AUTO) 41.3 % (20.5-51.5); MEAN CORPUSCULAR HEMOGLOBIN 31 pg (27-31); MEAN CORPUSCULAR HGB CONC 33 % (32-36); MEAN CORPUSCULAR VOLUME 93 fL (79.0-98.0); MONOCYTES # (AUTO) 0.4 K/uL (0.0-1.0); MONOCYTES % (AUTO) 9.7 % (1.7-9.3); NEUTROPHILS # (AUTO) 1.8 K/uL (1.8-7.7); NEUTROPHILS % (AUTO) 45.4 % (40.0-70.0); PLATELET COUNT (AUTO) 191 K/uL (130-430); RED CELL DISTRIBUTION WIDTH 17.1 % (9.0-15.0); WHITE BLOOD COUNT (AUTO) 3.9 K/uL (4.8-10.8)
[2019-05-04 06:56] LABS: ANION GAP 5 (5-15); CALCIUM 7.5 mg/dL (8.4-11.0); CHLORIDE 105 mmol/L (98-107); CREATININE 2.32 mg/dL (0.55-1.30); GLUCOSE 136 mg/dL (70-99); POTASSIUM 3.8 mmol/L (3.5-5.1); SODIUM SERUM 137 mmol/L (136-145); UREA NITROGEN, BLOOD 33 mg/dL (8-21)
[2019-05-04 07:16] LABS: FOLATE (FOLIC ACID) 3.7 ng/mL (>3.0)
[2019-05-04 08:00] VITALS: BP_SYST 112
--- NOTE | 2019-05-04 08:00 | NUR ---
AM NOTES- In bed, sleepy but responsive. Denies any pain or discomfort. on room air. has incontinent of urine. Change and repositioned. IVF infusing well. Safety precaution observed. No acute distress noted. bed alarm on. will monitor.
[2019-05-04] MEDS: METOPROLOL TARTRATE 25 MG TABLET PO SCH ×2 (09:00→09:20)
[2019-05-04] MEDS: LOSARTAN POTASSIUM 50 MG TABLET (COZAAR) PO SCH ×3 (09:00→09:48)
[2019-05-04] MEDS: GABAPENTIN 300 MG CAPSULE PO SCH ×2 (09:21→21:23)
[2019-05-04] MEDS: FLUoxetine HCL 20 MG CAPSULE (PROzac) PO SCH (09:23)
--- NOTE | 2019-05-04 10:30 | NUR ---
pt working with physical therapy at this time.
[2019-05-04 11:31] VITALS: BP_SYST 122
--- NOTE | 2019-05-04 12:55 | NUR ---
Notes- Pt able to feed herself slowly. denies any pain.
--- NOTE | 2019-05-04 14:26 | NUR ---
Pt resting, reposition for comfort.
[2019-05-04 15:21] VITALS: BP_SYST 165
--- NOTE | 2019-05-04 18:02 | NUR ---
Notes- pt heart rate with down to 35 for a few minutes with possible 2:1 AV block non conductive P wave. Dr. Brooksium here and ordered to consult Dr. Reis and transfer patient to ICU. pt is eating at this time, denies any cheat pain.
--- NOTE | 2019-05-04 19:30 | NUR ---
Initial Notes Received handoff report from offgoing nurse at the bedside. Patient is AAOx1. No SOB, no acute distress, no complaints of pain at this time. Bed is locked, in the lowest position, 2x side rails up, bed alarm is on. Call light is within reach. Encouraged patient to call for assistance. Received in report that the patient had previous HR 35, no P wave, and Dr Araujo is aware. However, at this time, patient is stable, HR > 60, Sinus rhythm, and Dr Araujo stated that there is no need to send the patient to the ICU. Will continue with plan of care.
[2019-05-04 20:00] VITALS: BP_SYST 138
[2019-05-04] MEDS ORDERED: LOSARTAN POTASSIUM 50 MG TABLET (COZAAR) PO SCH (21:00)
[2019-05-04] MEDS: hydrALAZINE HCL 25 MG TABLET PO SCH (21:24)
[2019-05-04] MEDS: INSULIN REGULAR, HUMAN 100 UNITS/ML, 10 ML VIAL (humuLIN R) SUBCUT PRN (21:27)
--- NOTE | 2019-05-04 22:00 | NUR ---
Patient resting comfortably in bed, eyes closed. Breathing even and unlabored, visible chest rise and fall noted. Aroused by light stimulation. No Complaints of pain or discomfort at this time. Clean and dry at this time, no signs of incontinence. Bed is locked, in the lowest position, 2x side rails up, bed alarm is on. Call light is within reach. Encouraged patient to call for assistance.
--- NOTE | 2019-05-04 23:14 | NUR ---
CONSULT: CONSULT CALLED FOR MONICA I SPOKE WITH MATHEW EXCHANGE REASON FOR CONSULT: SEVERE BRADYCARDIA REQUESTING CONSULT: DR. RUGGIERO VESSEL MANAGER PHONE NUMBER: [phone]
[2019-05-05] VITALS: BP_SYST 148
--- NOTE | 2019-05-05 | NUR ---
Patient resting comfortanly in bed, eyes closed. Breathing even and unlabored with visible chest rise and fall noted. No SOB, no acute distress, no complaints of pain at this time. Bed is locked, in the lowest position, 2x side rails up, bed alarm is on. Call light within reach.
--- NOTE | 2019-05-05 01:31 | NUR ---
Patient resting in bed. Noted incontinence of urine. Provided incontinence care as needed. Patient is now clean and dry, resting comfortably in bed. Encouraged patient to call for assistance.
[2019-05-05] MEDS: KCL 20 mEq in D5/0.45NS 1000mL 1,000 ML IV SCH (02:40)
--- NOTE | 2019-05-05 02:55 | NUR ---
Noted incontinence. provided incontinence care as needed. patient is now clean and dry. skin break down also noted in the perineal and thigh area. photos taken for documentation. charge nurse aware.
--- NOTE | 2019-05-05 04:10 | NUR ---
PATIENT RESTING COMFORTABLY IN BED, EYES CLOSED. BREATHING EVEN AND UNLABORED WITH VISIBLE CHEST RISE AND FALL NOTED. NO SOB, NO ACUTE DISTRESS, NO SIGNS OF PAIN OR FACIAL GRIMACING NOTED. IVF INFUSING PER MD ORDER, SEE EMAR FOR DETAILS. BED IS LOCKED, IN THE LOWEST POSITION, 2X SIDE RAILS UP, BED ALARM IS ON. CALL LIGHT IS WITHIN REACH.
[2019-05-05] MEDS: hydrALAZINE HCL 25 MG TABLET PO SCH (05:39)
[2019-05-05 05:41] VITALS: BP_SYST 144
--- NOTE | 2019-05-05 05:42 | NUR ---
Patient is becoming more awake, alert, and responsive. Informed the patient that she is currently in shock, and patient was surprised at this fact. Asked the patient how old she is, and patient states "23 i think." Reoriented patient to current date, event, and hospital setting. Patient verbalized understanding. Will continue to monitor closely.
--- NOTE | 2019-05-05 06:59 | NUR ---
Closing Notes Patient is resting comfortably in bed, eyes are closed. Breathing even and unlabored. Visible chest rise and fall noted. No SOB, no acute distress, no signs of pain or facial grimacing noted. No SOB, no acute distress, no signs of pain or facial grimacing noted. Bed is locked, in the lowest position, 2x side rails up, bed alarm is on. Call light is within reach. Fall and safety precautions maintained. All needs have been met during this shift. Will endorse care to oncoming dayshift nurse.
--- NOTE | 2019-05-05 07:36 | NUR ---
INITIAL NOTE BESIDE SBAR REPORT RECEIVED BY NATUROPATHIC ONCOLOGY PROVIDER RN. PT RESTING IN BED. NO ACUTE DISTRESS NOTED. BREATHING EVEN AND UNLABORED. IVF INFUSING WELL. CALL LIGHT WITHIN REACH, BED IN LOW AND LOCKED POSITION WITH BED ALARM ON.
[2019-05-05 08:58] VITALS: BP_SYST 141
--- NOTE | 2019-05-05 09:12 | NUR ---
PAGED DR. ANDERSON PT HR AT 38, FLUCTUATING TO 42. PATIENT DENIES ANY SOB, DIZZINESS. PAGED DR. ANDERSON.
[2019-05-05] MEDS: FLUoxetine HCL 20 MG CAPSULE (PROzac) PO SCH (09:28)
[2019-05-05] MEDS: GABAPENTIN 300 MG CAPSULE PO SCH ×2 (09:28→20:46)
--- NOTE | 2019-05-05 09:30 | NUR ---
MD PAVEL ANDERSON EXAMINING PATIENT AT BEDSIDE. Addendum: 05/05/19 at 0956 by Ailyn Gutiérrez RN AWARE OF PT HR FLUCTUATION 38 TO 42. PATIENT HR AT 66 AT THIS TIME.
[2019-05-05] MEDS ORDERED: DOPamine PREMIX 250 ML IV PRN (09:45)
--- NOTE | 2019-05-05 09:45 | NUR ---
RN ROUNDS PT RESTING, NO ACUTE DISTRESS NOTED, HR 66, BREATHING EVEN AND UNLABORED.
[2019-05-05] MEDS: D5/0.45 NS 1,000 ML IV SCH ×2 (10:58→20:47)
[2019-05-05 11:25] VITALS: BP_SYST 142
--- NOTE | 2019-05-05 11:45 | NUR ---
RN ROUNDS PT RESTING, NO ACUTE DISTRESS NOTED, BREATHING EVEN AND UNLABORED.
[2019-05-05] MEDS ORDERED: COMMUNICATION ORDER XX ONE (12:00)
[2019-05-05] MEDS: DOPamine PREMIX 250 ML IV SCH (12:51)
--- NOTE | 2019-05-05 13:45 | NUR ---
RN ROUND PT AWAKE, SEMI FOWLERS EATING LUNCH, TOLERATING WELL.
[2019-05-05 15:28] VITALS: BP_SYST 109
--- NOTE | 2019-05-05 15:45 | NUR ---
RN ROUNDS PT RESTING IN BED, NO ACUTE DISTRESS NOTED, BREATHING EVEN AND UNLABORED.
[2019-05-05] MEDS: INSULIN REGULAR, HUMAN 100 UNITS/ML, 10 ML VIAL (humuLIN R) SUBCUT PRN ×2 (16:51→20:48)
--- NOTE | 2019-05-05 17:45 | NUR ---
RN ROUNDS PT EATING DINNER. PT DENIES ANY N/V/DIZZINESS. WILL CONTINUE TO MONITOR.
--- NOTE | 2019-05-05 18:53 | NUR ---
MD ROUNDS DR. RUGGIERO AT BEDSIDE EXAMINING PATIENT.
--- NOTE | 2019-05-05 19:42 | NUR ---
CLOSING NOTE BEDSIDE SBAR REPORT GIVEN TO RECEIVING RN. PT AWAKE, DENIES ANY SOB, OR DIZZ, FAMILY AT BEDSIDE. CALL LIGHT WITHIN REACH, BED IN LOW AND LOCKED POSITION WITH BED ALARM ON. Addendum: 05/05/19 at 1949 by Ailyn Gutiérrez RN PATIENT CARE ENDORSED TO CHEMISTRY FACULTY MEMBER RN.
[2019-05-05 20:00] VITALS: BP_SYST 139
--- NOTE | 2019-05-05 20:00 | NUR ---
ASSUMED CARE. RECEIVED ALERT,VERBALLY RESPONSIVE BUT FORGETFUL. AFEBRILE, NOT IN ACUTE DISTRESS. NO PAIN OR DISCOMFORT NOTED. WITH IV FLUID D5 1/2 NS INFUSING AT 100 ML/HR VIA LEFT HAND #20 IV LINE. ON DOPAMINE DRIP RUNNING @ 2 MCG/KG/MINUTE (6.75 ML/HR) VIA RIGHT WRIST #22 IV LINE FOR JAYLA ARRHYTHMIA. SINUS RHYTHM WITH BBB @ 60'S/MINUTE ON THE MONITOR. SON AND CAREGIVER AT BEDSIDE. VS STABLE, WILL CONTINUE TO MONITOR. NEEDS ATTENDED.
--- NOTE | 2019-05-05 20:48 | NUR ---
FINGERSTICK BLOOD SUGAR [id number]. 2 UNITS OF REGULAR INSULIN SQ GIVEN. DUE MEDICATION,A NEW BAG OF IV FLUID ADMINISTERED. WILL GIVE HS SNACK.
--- NOTE | 2019-05-05 21:05 | NUR ---
HS SNACK OF 1 PACK LANA CRACKERS AND 1 CUP OF MILK (NON-FAT) GIVEN.
--- NOTE | 2019-05-06 | NUR ---
ASLEEP, NOT IN ANY KIND OF DISTRESS. NO PAIN OR DISCOMFORT NOTED. SIDE RAILS UP, CALL LIGHT WITHIN REACH. KEPT WARM AND COMFORTABLE. VS REMAIN STABLE. WILL CONTINUE TO MONITOR.
[2019-05-06 00:57] VITALS: BP_SYST 149
--- NOTE | 2019-05-06 03:00 | NUR ---
PT. HEART RATE GOES DOWN TO 30'S MORE FREQUENT BUT FOR ONLY A VERY SHORT TIME. PT.PLACED BACK ON OXYGEN AT 2 LPM VIA NC. OTHERWISE. PT. NOT IN ANY KIND OF DISTRESS. NO PAIN OR DISCOMFORT NOTED. WILL CLOSELY MONITOR.
--- NOTE | 2019-05-06 04:00 | NUR ---
SLEEPING, NOT IN ACUTE DISTRESS. NO SIGNIFICANT CHANGE IN CONDITION. WILL CONTINUE TO MONITOR.
[2019-05-06] MEDS: D5/0.45 NS 1,000 ML IV SCH ×2 (06:09→16:59)
--- NOTE | 2019-05-06 06:25 | NUR ---
FINGERSTICK BLOOD SUGAR [id number]. NO INSULIN COVERAGE NEEDED.
[2019-05-06 06:59] LABS: EOSINOPHILS # (AUTO) 0.1 K/uL (0.0-0.4); EOSINOPHILS % (AUTO) 2.6 % (0.0-4.0); HEMATOCRIT 26.5 % (36-48); HEMOGLOBIN 8.6 g/dL (12.0-16.0); LYMPHOCYTES # (AUTO) 1.4 K/uL (1.0-5.5); LYMPHOCYTES % (AUTO) 38.8 % (20.5-51.5); MEAN CORPUSCULAR HEMOGLOBIN 31 pg (27-31); MEAN CORPUSCULAR HGB CONC 33 % (32-36); MEAN CORPUSCULAR VOLUME 94 fL (79.0-98.0); MONOCYTES # (AUTO) 0.3 K/uL (0.0-1.0); MONOCYTES % (AUTO) 8.7 % (1.7-9.3); NEUTROPHILS # (AUTO) 1.7 K/uL (1.8-7.7); NEUTROPHILS % (AUTO) 48.9 % (40.0-70.0); PLATELET COUNT (AUTO) 183 K/uL (130-430); RED BLOOD CELL COUNT(AUTO) 2.82 MIL/uL (4.2-6.2); WHITE BLOOD COUNT (AUTO) 3.5 K/uL (4.8-10.8)
--- NOTE | 2019-05-06 07:05 | NUR ---
ENDORSED CARE TO DONAL PRADO.
[2019-05-06 07:17] LABS: ANION GAP 4 (5-15); CALCIUM 7.4 mg/dL (8.4-11.0); CHLORIDE 101 mmol/L (98-107); CREATININE 2.16 mg/dL (0.55-1.30); GLUCOSE 388 mg/dL (70-99); POTASSIUM 3.6 mmol/L (3.5-5.1); SODIUM SERUM 131 mmol/L (136-145); TOTAL BILIRUBIN 0.2 mg/dL (0.0-1.0); UREA NITROGEN, BLOOD 32 mg/dL (8-21)
[2019-05-06 07:18] LABS: ALANINE AMINOTRANSFERASE 25 U/L (12-78); ALBUMIN 2.3 g/dL (3.4-4.8); ASPARTATE AMINOTRANSFERASE 11 U/L (10-37); CHOLESTEROL 115 mg/dL (<200); HDL CHOLESTEROL 26 mg/dL (>55); LDL CHOLESTEROL 73 mg/dL (<100); TRIGLYCERIDES 81 mg/dL (30-150)
--- NOTE | 2019-05-06 07:20 | NUR ---
INITIAL NOTE BEDSIDE SBAR REPORT RECEIVED BY FITTING ROOM CHECKER RN. PT AWAKE, DENIES ANY DIZZ OR SOB. PT ON 2L NC TOLERATING WELL. IVF INFUSING WELL. CALL LIGHT WITHIN REACH, BED IN LOW AND LOCKED POSITION WITH BED ALARM ON.
[2019-05-06 07:32] VITALS: BP_SYST 145; BP_SYST 153
[2019-05-06 08:00] VITALS: BP_SYST 153
[2019-05-06] MEDS: GABAPENTIN 300 MG CAPSULE PO SCH ×2 (08:54→20:52)
[2019-05-06] MEDS: FLUoxetine HCL 20 MG CAPSULE (PROzac) PO SCH (08:54)
[2019-05-06] MEDS: FLU VACC TS2019(65UP)/MF59C/PF 45 MCG/0.5 ML SYRINGE I.M. PRN (09:00)
--- NOTE | 2019-05-06 09:20 | NUR ---
RN ROUNDS PT RESTING, NO ACUTE DISTRESS NOTED, BREATHING EVEN AND UNLABORED.
--- NOTE | 2019-05-06 11:30 | NUR ---
RN ROUND PT AWAKE, DENIES ANY DISCOMFORT AT THIS TIME.
[2019-05-06] MEDS: INSULIN REGULAR, HUMAN 100 UNITS/ML, 10 ML VIAL (humuLIN R) SUBCUT PRN ×2 (11:39→20:55)
--- NOTE | 2019-05-06 12:00 | NUR ---
DR. MONICA GAMING AT BEDSIDE EXAMINING PT AT BEDSIDE.
[2019-05-06 12:07] VITALS: BP_SYST 147
--- NOTE | 2019-05-06 13:30 | NUR ---
NEW IV STARTED PT IV ON LEFT WRIST CAME OUT. PT IV RIGHT WRIST INFILTRATED. NEW IV STARTED ON RIGHT UPPER ARM RUNNING DOPAMINE, INFUSING WELL. NEW IV STARTED ON RIGHT FOREARM RUNNING IVF, INFUSING WELL. PATIENT TOLERATED WELL.
--- NOTE | 2019-05-06 15:30 | NUR ---
RN ROUND PT INCONTINENT OF URINE. SHEETS CHANGED, PT CLEANED. PT TOLERATED WELL.
[2019-05-06 16:41] VITALS: BP_SYST 155
--- NOTE | 2019-05-06 17:45 | NUR ---
RN ROUNDS PT RESTING, NO ACUTE DISTRESS NOTED, BREATHING EVEN AND UNLABORED.
--- NOTE | 2019-05-06 17:56 | NUR ---
PHYSICAL THERAPY CO-SIGN The Physical Therapy Progress Notes documented by Cardiovascular Lab Director have been reviewed. Reviewed/Co-Signed by: Colleen Buchanan PT Documentation Done by:SADI MCDONOUGH FINISHER SCREWDOWN WILL BENEFIT W/ P.T. POST ACUTE STAY; 05/06/19 Hgb=8.6; EF 78% Addendum: 05/06/19 at 1757 by Colleen Buchanan PT Amended: Links added.
--- NOTE | 2019-05-06 19:23 | NUR ---
CLOSING NOTE BEDSIDE SBAR REPORT GIVEN TO HYDRAULIC PLUMBER HELPER RN. PT AWAKE, DENIES ANY DISCOMFORT AT THIS TIME. IVF INFUSING WELL. CALL LIGHT WITHIN REACH, BED IN LOW AND LOCKED POSITION WITH BED ALARM ON. PT CARE ENDORSED TO HYDRAULIC PLUMBER HELPER RN.
--- NOTE | 2019-05-06 19:42 | NUR ---
Initial note: Report received from dayshift RN. Patient is awake in bed, no acute distress. Alert and oriented x1, tolerating room air. IV site to ESTEPHANIA is saline locked, IV site to right AC receiving IV fluids per MD order. Call light is with patient. Bed is locked in lowest position, side rails raised x3, bed alarm on. Call light with patient. Will continue to monitor.
[2019-05-06 20:00] VITALS: BP_SYST 138; BP_SYST 146
--- NOTE | 2019-05-06 20:58 | NUR ---
Blood sugar: Patient's blood sugar is 178. Administered 2 units regular insulin subcutaneously per MD-ordered sliding scale. Call light with patient. Safety, fall precautions in place. Will monitor for signs/symptoms of hypoglycemia.
--- NOTE | 2019-05-06 23:23 | NUR ---
Rounds: Patient is awake watching TV. Does not show any acute distress. Even and unlabored breathing on room air. IV site patent and benign. Call light with patient. Will continue monitoring.
[2019-05-07 01:12] VITALS: BP_SYST 163
--- NOTE | 2019-05-07 02:51 | NUR ---
Rounds: Patient is resting in bed, no acute distress. Tolerating room air. IV fluids infusing well, no infiltration noted. Call light is with patient Will continue to monitor.
[2019-05-07] MEDS: D5/0.45 NS 1,000 ML IV SCH ×2 (03:13→11:45)
--- NOTE | 2019-05-07 04:46 | NUR ---
Rounds: Patient is resting in bed, does not show any acute distress. Even, unlabored breathing on room air. IV fluids infusing well, no infiltration. Call light with patient. Safety, fall precautions in place. Will continue to monitor.
[2019-05-07 06:08] LABS: PROTHROMBIN TIME 10.5 SECS (9.5-12.5)
--- NOTE | 2019-05-07 06:40 | NUR ---
Closing note: Patient is resting in bed, no acute distress noted. Even and unlabored breathing on room air. IV fluids infusing well to right AC IV site, no infiltration. ESTEPHANIA IV site flushes well with no infiltration noted. All needs met. Safety and fall precautions maintained. Hourly rounding performed throughout shift. Will endorse care to dayshift RN.
[2019-05-07 06:41] LABS: BASOPHILS % (AUTO) 0.9 % (0.0-2.0); EOSINOPHILS # (AUTO) 0.1 K/uL (0.0-0.4); EOSINOPHILS % (AUTO) 2.5 % (0.0-4.0); HEMATOCRIT 26.5 % (36-48); HEMOGLOBIN 8.6 g/dL (12.0-16.0); LYMPHOCYTES # (AUTO) 1.3 K/uL (1.0-5.5); LYMPHOCYTES % (AUTO) 29.8 % (20.5-51.5); MEAN CORPUSCULAR HEMOGLOBIN 31 pg (27-31); MEAN CORPUSCULAR HGB CONC 33 % (32-36); MEAN CORPUSCULAR VOLUME 94 fL (79.0-98.0); MONOCYTES # (AUTO) 0.3 K/uL (0.0-1.0); NEUTROPHILS # (AUTO) 2.5 K/uL (1.8-7.7); NEUTROPHILS % (AUTO) 58.8 % (40.0-70.0); PLATELET COUNT (AUTO) 198 K/uL (130-430); RED BLOOD CELL COUNT(AUTO) 2.82 MIL/uL (4.2-6.2); RED CELL DISTRIBUTION WIDTH 17.3 % (9.0-15.0); WHITE BLOOD COUNT (AUTO) 4.2 K/uL (4.8-10.8)
[2019-05-07 06:45] LABS: ANION GAP 6 (5-15); CALCIUM 8.1 mg/dL (8.4-11.0); CHLORIDE 104 mmol/L (98-107); CREATININE 2.42 mg/dL (0.55-1.30); GLUCOSE 136 mg/dL (70-99); POTASSIUM 3.8 mmol/L (3.5-5.1); SODIUM SERUM 136 mmol/L (136-145); UREA NITROGEN, BLOOD 38 mg/dL (8-21)
[2019-05-07 08:00] VITALS: BP_SYST 174
--- NOTE | 2019-05-07 08:00 | NUR ---
OPENING NOTE: PATIENT RESTING IN BED, AWAKE AND ALERT. PATIENT IS VERBALLY RESPONSIVE. PATIENT ON ROOM AIR AND SATURATING WITHIN NORMAL LIMITS. NO ACUTE SIGNS OF RESP DISTRESS, NO SOB. BREATHING EVEN AND UNLABORED. IV INTACT AND PATENT, NO REDNESS/SWELLING TO SITE. SAFETY PRECAUTIONS IMPLEMENTED. BED AT LOWEST POSITION, CALL LIGHT IN REACH, SIDE RAILX3. CONTINUE TO MONITOR.
[2019-05-07] MEDS: GABAPENTIN 300 MG CAPSULE PO SCH ×2 (08:01→20:31)
[2019-05-07] MEDS: FLUoxetine HCL 20 MG CAPSULE (PROzac) PO SCH (08:01)
[2019-05-07] MEDS: DOPamine PREMIX 250 ML IV SCH (08:01)
--- NOTE | 2019-05-07 08:30 | NUR ---
DR. STEPHEN PAGED: AWAITING FOR CALL BACK.
--- NOTE | 2019-05-07 09:38 | NUR ---
DR. ANDERSON IN UNIT/BLOOD PRESSURE: DR. ANDERSON IN UNIT, HE IS AWARE OF INCREASED BLOOD PRESSURE. PER DR. ANDERSON "ILL TAKE CARE OF IT".
[2019-05-07] MEDS ORDERED: THEOPHYLLINE ANHYDROUS 300 MG TAB.SR.12H PO ONE (09:45)
--- NOTE | 2019-05-07 10:00 | NUR ---
ROUNDING: NO CHANGE IN STATUS CONTINUE TO MONITOR.
--- NOTE | 2019-05-07 10:22 | NUR ---
CONSULTATION PAGED/CALLED Reason for Consultation: [] BRADYCARDIA Person Who was Notified: [] TREVON Consulting Physician: [] DR RICHARD Allergist/Immunologist Specialty: [] CARDIO/PHYSIOLOGY Ordering Physician: [] DR Alina ANDERSON
[2019-05-07] MEDS: INSULIN REGULAR, HUMAN 100 UNITS/ML, 10 ML VIAL (humuLIN R) SUBCUT PRN ×3 (11:51→20:32)
--- NOTE | 2019-05-07 12:10 | NUR ---
ROUNDING: PATIENT SITTING UP EATING LUNCH. TOLERATING LUNCH WELL. PATIENT ON ROOM AIR AND SATURATING WNL. NO ACUTE SIGNS OF RESP DISTRESS, NO SOB. BREATHING EVEN AND UNLABORED. IV INTACT AND PATENT, NO REDNESS/SWELLING TO SITE. BED AT LOWEST POSITION, CALL LIGHT IN REACH, SIDE RAILX3, CLOSE TO NURSING STATION. CONTINUE TO MONITOR.
[2019-05-07 12:16] VITALS: BP_SYST 185
--- NOTE | 2019-05-07 13:33 | NUR ---
PAGED DR. ANDERSON X2: PAGED DR. ANDERSON AGAIN IN REGARDS TO PATIENTS BLOOD PRESSURE. HE DID NOT CALL BACK TO EARLIER PAGE. AWAITING CALL BACK.
--- NOTE | 2019-05-07 14:00 | NUR ---
ROUNDING: NO CHANGE IN PATIENT STATUS, CONTINUE TO MONITOR.
[2019-05-07] MEDS ORDERED: hydrALAZINE HCL 25 MG TABLET PO ONE (14:45)
[2019-05-07 16:38] VITALS: BP_SYST 171
--- NOTE | 2019-05-07 17:13 | NUR ---
Dietitian Recommendations * Continue [facility] diet. * Encourage PO intake. LP, RD Please refer to Nutrition Assessment for details. Signed: 05/07/19 at 171 by Linda RAMOS <Co-Signature Required> Co-Signed: 05/07/19 at [address] Addendum: 05/07/19 at 171 by Linda RAMOS Amended: Links added.
[2019-05-07 20:00] VITALS: BP_SYST 146
--- NOTE | 2019-05-07 20:00 | NUR ---
ASSUMED CARE. RECEIVED RESTING IN BED,AROUSABLE,ANSWERS APPROPRIATELY BUT FORGETFUL AFEBRILE, NOT IN ACUTE DISTRESS. DENIES ANY PAIN OR DISCOMFORT. WITH IV FLUID D5 1/2 NS INFUSING AT 100 ML/HR VIA RIGHT FOREARM #22 IV LINE. DOPAMINE DRIP INFUSING AT 4 MCG/KG/MINUTE VIA RIGHT UPPER ARM # 22 IV LINE. SAO2=95% ON ROOM AIR. SINUS JALYA/SINUS RHYTHM @ 40'S-70'S ON THE MONITOR. MD'S AWARE. PT. IS OTHERWISE ASYMPTOMATIC AND STABLE. WILL CONTINUE TO MONITOR. NEEDS ATTENDED.
[2019-05-07] MEDS: hydrALAZINE HCL 25 MG TABLET PO SCH (20:31)
--- NOTE | 2019-05-07 20:32 | NUR ---
FINGERSTICK BLOOD SUGAR TIUEF=[id number]. REGULAR INSULIN 2 UNITS SQ GIVEN PER SLIDING SCALE. OTHER DUE MEDICATIONS GIVEN.
--- NOTE | 2019-05-08 | NUR ---
ASLEEP, NOT IN ANY KIND OF DISTRESS. NO PAIN OR DISCOMFORT NOTED. SIDE RAILS UP, CALL LIGHT WITHIN REACH. KEPT WARM AND COMFORTABLE. VS REMAIN STABLE.
[2019-05-08 00:14] VITALS: BP_SYST 110
[2019-05-08] MEDS: D5/0.45 NS 1,000 ML IV SCH ×3 (00:54→21:44)
--- NOTE | 2019-05-08 01:22 | NUR ---
UPON CHECKING ON ORIGINAL DOPAMINE ORDER FROM 05/06/2019 BY . DOPAMINE WAS ORDERED @ 2 MCG/KG/MINUTE. ENZYME CHEMIST TWIN NOTIFIED. DRIP WAS DECREASED TO 2 MCG/KG/MINUTE FROM 4 MCG/KG/MINUTE RECEIVED FROM DAY SHIFT RN. WILL HAVE DAY SHIFT CLARIFY WITH PHARMACY IN THE MORNING.
--- NOTE | 2019-05-08 04:00 | NUR ---
ASLEEP, NO SIGNIFICANT CHANGE. REMAINS STABLE AND PAIN FREE.
--- NOTE | 2019-05-08 06:24 | NUR ---
FINGERSTICK BLOOD SUGAR MQPSQ=457. NO INSULIN COVERAGE NEEDED. SHIFT UNEVENTFUL. WILL ENDORSE CARE TO AM SHIFT.
[2019-05-08 07:19] LABS: BASOPHILS % (AUTO) 0.9 % (0.0-2.0); EOSINOPHILS # (AUTO) 0.1 K/uL (0.0-0.4); EOSINOPHILS % (AUTO) 2.8 % (0.0-4.0); HEMATOCRIT 28.6 % (36-48); HEMOGLOBIN 9.3 g/dL (12.0-16.0); LYMPHOCYTES # (AUTO) 1.3 K/uL (1.0-5.5); LYMPHOCYTES % (AUTO) 40.3 % (20.5-51.5); MEAN CORPUSCULAR HEMOGLOBIN 30 pg (27-31); MEAN CORPUSCULAR HGB CONC 33 % (32-36); MEAN CORPUSCULAR VOLUME 93 fL (79.0-98.0); MONOCYTES # (AUTO) 0.3 K/uL (0.0-1.0); MONOCYTES % (AUTO) 8.5 % (1.7-9.3); NEUTROPHILS # (AUTO) 1.5 K/uL (1.8-7.7); PLATELET COUNT (AUTO) 207 K/uL (130-430); RED BLOOD CELL COUNT(AUTO) 3.07 MIL/uL (4.2-6.2); RED CELL DISTRIBUTION WIDTH 17.2 % (9.0-15.0); WHITE BLOOD COUNT (AUTO) 3.2 K/uL (4.8-10.8)
--- NOTE | 2019-05-08 07:25 | NUR ---
ENDORSED CARE TO SOLOMON PRADO.
[2019-05-08 08:00] VITALS: BP_SYST 157
--- NOTE | 2019-05-08 08:00 | NUR ---
RN INITIAL NOTES RECEIVD PATIENT IN BED NOT IN ANY DISTRESS ANSWERS BUT FORGOT YEAR , NO DISTRESS NO COMPLAIN OF PAIN NO CHEST PAIN VS WITHIN NORMAL LIMIT , WITH IVF INFUSING AND DOPAMINE INFUSED ORDERED, CALLED PHARMACY VERIFIED WITH JOSELIN REGARDING DOPAMINE RATE AND INFUSION, NO ADVERSE REACTION AT THIS TIME
[2019-05-08] MEDS: DOPamine PREMIX 250 ML IV SCH ×3 (08:30→09:13)
[2019-05-08 08:49] LABS: NEUTROPHILS % (AUTO) 47.5 % (40.0-70.0)
[2019-05-08] MEDS ORDERED: THEOPHYLLINE ANHYDROUS 300 MG TAB.SR.12H PO SCH (09:00)
[2019-05-08] MEDS: hydrALAZINE HCL 25 MG TABLET PO SCH ×2 (09:18→21:33)
[2019-05-08] MEDS: FLUoxetine HCL 20 MG CAPSULE (PROzac) PO SCH (09:18)
[2019-05-08] MEDS: GABAPENTIN 300 MG CAPSULE PO SCH ×2 (09:19→21:32)
[2019-05-08] MEDS: FLU VACC TS2019(65UP)/MF59C/PF 45 MCG/0.5 ML SYRINGE I.M. PRN (09:20)
--- NOTE | 2019-05-08 10:00 | NUR ---
ROUNDS PATIENT SENT OB STOOL TO LAB NO COMPLAIN OF PAIN
--- NOTE | 2019-05-08 12:00 | NUR ---
ROUNDS PATIENT SEEN BY DISCUSSED PALN OF CARE AND SHE IS AWARE SHE STILL NOT FOR DC Addendum: 05/08/19 at 1242 by Anastacia Davidson RN DR CORTÉS PATIENT SEEN BY DR CORTÉS DISCUSSED VITAL SIGN AND CONDITION CONT WITH DOPAMINE NEW ORDERS AND COUMADIN ORDERED
[2019-05-08 12:45] VITALS: BP_SYST 166
--- NOTE | 2019-05-08 13:02 | NUR ---
PHYSICAL THERAPY CO-SIGN The Physical Therapy Progress Notes documented by Chief Green Officer have been reviewed. Reviewed/Co-Signed by: Colleen Buchanan PT Documentation Done by:AMALIA MOYA INSURANCE SPECIAL AGENT POC REVIEWED W/ INSURANCE SPECIAL AGENT; PROGRESS RAIN; WILL BENEFIT W/ P.T. POST ACUTE STAY. 05/08/19 Hgb=9.3; 05/07/19 XR CHEST:CARDIOMEGALY, ASV CHANGES, (-)ACUTE. Addendum: 05/08/19 at 1303 by Colleen Buchanan PT Amended: Links added.
[2019-05-08] MEDS: INSULIN REGULAR, HUMAN 100 UNITS/ML, 10 ML VIAL (humuLIN R) SUBCUT PRN ×3 (13:48→21:38)
--- NOTE | 2019-05-08 14:00 | NUR ---
ROUNDS PATIENT AWAKE STATED SHE WANTS TO GO HOME
--- NOTE | 2019-05-08 16:00 | NUR ---
ROUNDS PATIENT ASLEEP NO DISTRESS
[2019-05-08 16:39] VITALS: BP_SYST 141
--- NOTE | 2019-05-08 18:57 | NUR ---
ENDORSEMENT WILL CONT CARE , CONT WITH DOPAMINE DRIP AND PER DR BENOIT ANOTHER DAY FOR THE SAME DOSE AND HE WILL RE ASSESS IN AM , NO DISTRESS AND PATIENT KEEP SAYING SHE WANTS TO GO HOME, EXPLAINED SAFETY
--- NOTE | 2019-05-08 18:59 | NUR ---
ENDORSEMENT PATIENT WILL START AZITHROMYCIN EQUIP TECH GIVEN COPY TO START MEDS ONCE AVAIL Addendum: 05/08/19 at 1934 by Anastacia Davidson RN ERROR WRONG PATIENT DOC IS FOR ANOTHER PATIENT
--- NOTE | 2019-05-08 20:00 | NUR ---
AWAKE, ALERT. BOUTS OF FORGETFULNESS. ON ROOM AIR. ON DOPAMINE DRIP AT 2 MCG/KG/MIN.
--- NOTE | 2019-05-08 21:00 | NUR ---
ACCU-CHEK 162, 2 UNITS REGULAR INSULIN SQ GIVEN PER SLIDING SCALE COV.
--- NOTE | 2019-05-08 22:00 | NUR ---
HUNGRY. ATE 1/2 HAM SANDWICH AND APPLE JUICE. TOLERATED WELL.
--- NOTE | 2019-05-08 23:30 | NUR ---
REPORT GIVEN TO IBIS LOCKWOOD.
--- NOTE | 2019-05-08 23:30 | NUR ---
ASSUMPTION OF CARE BEDSIDE REPORT RECEIVED BY IBIS CALDWELL. AT INITIAL ASSESSMENT, PATIENT IS RESTING IN BED, STABLE, NO SIGNS OF RESPIRATORY DISTRESS. PATIENT VERBALIZE NO PAIN . PLAN OF CARE FOR THE EVENING IS COMMUNICATED WITH THE PATIENT. PATIENT IS CONFUSED, CALL LIGHT TEACHING HAD MINIMAL SUCCESS, PATIENT IS PLACED IN A ROOM CLOSE TO THE NURSING STATION FOR CLOSE MONITORING. BED IS LOCKED, ALARMED, AND AT THE LOWEST LEVEL. FALL AND SAFETY PRECAUTIONS WILL BE IN PLACE THROUGHOUT THE SHIFT.
[2019-05-09 00:16] VITALS: BP_SYST 134
--- NOTE | 2019-05-09 01:30 | NUR ---
ROUNDING PATIENT IS SLEEPING IN BED, STABLE, NO SIGNS OF RESPIRATORY DISTRESS. CALL LIGHT IS WITHIN REACH. BED IS LOCKED, ALARMED, AND AT THE LOWEST LEVEL
--- NOTE | 2019-05-09 03:30 | NUR ---
ROUNDING PATIENT IS SLEEPING IN BED, STABLE, NO SIGNS OF RESPIRATORY DISTRESS. CALL LIGHT IS WITHIN REACH. BED IS LOCKED, ALARMED, AND AT THE LOWEST LEVEL
--- NOTE | 2019-05-09 05:30 | NUR ---
ROUNDING PATIENT IS RESTING IN BED, STABLE, NO SIGNS OF RESPIRATORY DISTRESS. CALL LIGHT IS WITHIN REACH. BED IS LOCKED, ALARMED, AND AT THE LOWEST LEVEL
[2019-05-09] MEDS: D5/0.45 NS 1,000 ML IV SCH ×2 (06:24→16:58)
[2019-05-09 06:25] LABS: ALANINE AMINOTRANSFERASE 20 U/L (12-78); ALBUMIN 2.6 g/dL (3.4-4.8); ANION GAP 7 (5-15); ASPARTATE AMINOTRANSFERASE 18 U/L (10-37); CHLORIDE 102 mmol/L (98-107); CREATININE 2.55 mg/dL (0.55-1.30); GLUCOSE 175 mg/dL (70-99); POTASSIUM 3.9 mmol/L (3.5-5.1); SODIUM SERUM 133 mmol/L (136-145); TOTAL BILIRUBIN 0.3 mg/dL (0.0-1.0); UREA NITROGEN, BLOOD 41 mg/dL (8-21)
[2019-05-09] MEDS: INSULIN REGULAR, HUMAN 100 UNITS/ML, 10 ML VIAL (humuLIN R) SUBCUT PRN ×4 (06:30→21:04)
--- NOTE | 2019-05-09 06:30 | NUR ---
CLOSING NOTES PATIENT WAS AWAKE AND RESTING IN BED THROUGHOUT SHIFT. BLOOD SUGAR CHECK AT THIS TIME WAS 159, PATIENT REFUSED INSULIN COVERAGE AT THIS TIME DESPITE EDUCATIONAL EFFORTS. NO S/S OF HYPERGLYCEMIA NOTED. PATIENT IS RESTING IN BED, STABLE, NO SIGNS OF RESPIRATORY DISTRESS. CALL LIGHT IS WITHIN REACH. BED IS LOCKED, ALARMED, AT THE LOWEST LEVEL. FALL AND SAFETY PRECAUTIONS HAS BEEN PLACED THROUGHOUT THE SHIFT. WILL CONTINUE TO MONITOR UNTIL BEDSIDE REPORT IS GIVEN TO AM NURSE.
--- NOTE | 2019-05-09 07:31 | NUR ---
RN INITIAL NOTES RECEIVED PATIENT ON BED , NO DISTRESS RESP EVEN AND UNLABORED, NO FACIAL GRIMACE NOTED , IVF INFUSING AND DOPAMINE DRIP ORDERED AT 6.75 CC /MIN , NO ADVERSE REACTION AND NO SIDE EFFECT NOTED , WILL CONT CARE
[2019-05-09] MEDS: FLUoxetine HCL 20 MG CAPSULE (PROzac) PO SCH (09:08)
[2019-05-09] MEDS: GABAPENTIN 300 MG CAPSULE PO SCH ×2 (09:08→20:57)
[2019-05-09] MEDS: THEOPHYLLINE ANHYDROUS 300 MG TAB.SR.12H PO SCH (09:08)
[2019-05-09] MEDS: hydrALAZINE HCL 25 MG TABLET PO SCH ×2 (09:10→20:57)
--- NOTE | 2019-05-09 10:00 | NUR ---
ROUNDS SLEEPING AT THIS TIME NO CHEST PAIN
[2019-05-09 10:44] VITALS: BP_SYST 136
--- NOTE | 2019-05-09 11:37 | NUR ---
DR ANDERSON DC DOPAMINE DR ANDERSON HERE DISCUSSED PATIENT CONDITION AND DC DOPAMINE WHILE HE IS ROUNDING HE WILL RE EVAL PATIENT LATER , DC DOPAMINE AND PATIENT MONITORED SLEEPING
[2019-05-09 12:23] VITALS: BP_SYST 138
--- NOTE | 2019-05-09 14:00 | NUR ---
DR WAGNER PATIENT SEEN BY DR WAGNER DISCUSSED PATIENT CONDITION
--- NOTE | 2019-05-09 16:00 | NUR ---
ROUNDS PATIENT OPENS EYES SPONTANEOUSLY WHEN NAME IS CALLED , NO COMPLAIN OF PAIN STAYED CA;MED IN BED
[2019-05-09 17:59] VITALS: BP_SYST 123
--- NOTE | 2019-05-09 18:38 | NUR ---
END RN NOTES WILL CONT WITH IVF ORDERED ,CONT MEDS AND NO SIGN OF BRADYCARDIA , WEANED OFF FROM DOPAMINE DRIP AND CONT WITH PLAN OF CARE , PER DR WAGNER WILL DC PLANNING IN AM
[2019-05-09 19:50] VITALS: BP_SYST 146
--- NOTE | 2019-05-09 19:50 | NUR ---
INITIAL NOTE AT INITIAL ASSESSMENT, PATIENT IS RESTING IN BED, STABLE, NO SIGNS OF RESPIRATORY DISTRESS. PATIENT VERBALIZE NO PAIN . PLAN OF CARE FOR THE EVENING IS COMMUNICATED WITH THE PATIENT. PATIENT IS CONFUSED, CALL LIGHT TEACHING HAD MINIMAL SUCCESS, PATIENT IS PLACED IN A ROOM NEXT TO THE NURSING STATION FOR CLOSE MONITORING. BED IS LOCKED, ALARMED, AND AT THE LOWEST LEVEL. FALL, SAFETY, ASPIRATION, AND RESPIRATORY, WILL BE IN PLACE THROUGHOUT THE SHIFT.
--- NOTE | 2019-05-09 21:50 | NUR ---
ROUNDING PATIENT IS RESTING IN BED, STABLE, NO SIGNS OF RESPIRATORY DISTRESS. CALL LIGHT IS WITHIN REACH. BED IS LOCKED, ALARMED, AND AT THE LOWEST LEVEL.
--- NOTE | 2019-05-09 23:50 | NUR ---
DC IV IV IS NOTED TO BE INFILTRATED AT THIS TIME. IV IS DC, TIP INTACT, NO SIGNS OF ACTIVE BLEED. REPOSITION FOR COMFORT. CALL LIGHT IN REACH. BED LOCKED, ALARMED, AND AT LOWEST POSITION. WILL CONTINUE TO MONITOR.
[2019-05-10] VITALS: BP_SYST 132
--- NOTE | 2019-05-10 01:50 | NUR ---
ROUNDING HYGIENE CARE PROVIDED AT THIS TIME AND FRESH LINENS PROVIDED. PATIENT TOLERATED WELL. REPOSITIONED FOR COMFORT. PATIENT IS STABLE, NO SIGNS OF RESPIRATORY DISTRESS. CALL LIGHT IN REACH. BED LOCKED, ALARMED, AND AT LOWEST POSITION. WILL CONTINUE TO MONITOR.
--- NOTE | 2019-05-10 03:50 | NUR ---
ROUNDING PATIENT IS SLEEPING IN BED, STABLE, NO SIGNS OF RESPIRATORY DISTRESS. CALL LIGHT IS WITHIN REACH. BED IS LOCKED, ALARMED, AND AT THE LOWEST LEVEL.
[2019-05-10] MEDS: D5/0.45 NS 1,000 ML IV SCH ×2 (05:31→14:55)
[2019-05-10] MEDS: INSULIN REGULAR, HUMAN 100 UNITS/ML, 10 ML VIAL (humuLIN R) SUBCUT PRN ×4 (06:06→21:26)
--- NOTE | 2019-05-10 06:15 | NUR ---
CLOSING NOTES PATIENTS GLUCOSE CHECK REQUIRED INSULIN PER SSI ORDERED BY MD. PATIENT SLEPT WELL THROUGHOUT THE SHIFT. AT THIS TIME, PATIENT IS RESTING IN BED, STABLE, NO SIGNS OF RESPIRATORY DISTRESS. CALL LIGHT IS WITHIN REACH. BED IS LOCKED, ALARMED, AT THE LOWEST LEVEL. FALL, SAFETY, ASPIRATION, AND RESPIRATORY PRECAUTIONS HAS BEEN PLACED THROUGHOUT THE SHIFT. WILL CONTINUE TO MONITOR UNTIL BEDSIDE REPORT IS GIVEN TO AM NURSE.
--- NOTE | 2019-05-10 07:20 | NUR ---
AM ROUNDS: PATIENT SLEEPING DURING ROUNDS. IVF ON GOING AT RIGHT UPPER ARM ,CLEAN AND DRY. NO ACUTE DISTRESS. CALL LIGHT WITH IN REACH. BED LOCKED AT LOWEST POSITION. BED ALARM ON. TELEMETRY ON.
[2019-05-10 07:26] LABS: BASOPHILS % (AUTO) 0.5 % (0.0-2.0); EOSINOPHILS % (AUTO) 0.7 % (0.0-4.0); HEMATOCRIT 27.1 % (36-48); HEMOGLOBIN 8.9 g/dL (12.0-16.0); LYMPHOCYTES # (AUTO) 1.3 K/uL (1.0-5.5); LYMPHOCYTES % (AUTO) 21.5 % (20.5-51.5); MEAN CORPUSCULAR HEMOGLOBIN 31 pg (27-31); MEAN CORPUSCULAR HGB CONC 33 % (32-36); MEAN CORPUSCULAR VOLUME 94 fL (79.0-98.0); MONOCYTES # (AUTO) 0.3 K/uL (0.0-1.0); MONOCYTES % (AUTO) 4.6 % (1.7-9.3); NEUTROPHILS # (AUTO) 4.4 K/uL (1.8-7.7); NEUTROPHILS % (AUTO) 72.7 % (40.0-70.0); PLATELET COUNT (AUTO) 196 K/uL (130-430); RED BLOOD CELL COUNT(AUTO) 2.89 MIL/uL (4.2-6.2); RED CELL DISTRIBUTION WIDTH 17.1 % (9.0-15.0); WHITE BLOOD COUNT (AUTO) 6.1 K/uL (4.8-10.8)
[2019-05-10 07:57] LABS: ANION GAP 8 (5-15); CALCIUM 8.5 mg/dL (8.4-11.0); CHLORIDE 103 mmol/L (98-107); CREATININE 2.86 mg/dL (0.55-1.30); GLUCOSE 168 mg/dL (70-99); POTASSIUM 3.7 mmol/L (3.5-5.1); SODIUM SERUM 135 mmol/L (136-145); UREA NITROGEN, BLOOD 41 mg/dL (8-21)
[2019-05-10 07:58] VITALS: BP_SYST 147
--- NOTE | 2019-05-10 09:00 | NUR ---
MED PASS: PATIENT TOLERATED HER MORNING MEDICATIONS WITH NO PROBLEM.
[2019-05-10] MEDS: THEOPHYLLINE ANHYDROUS 300 MG TAB.SR.12H PO SCH (09:16)
[2019-05-10] MEDS: hydrALAZINE HCL 25 MG TABLET PO SCH ×2 (09:16→21:23)
[2019-05-10] MEDS: FLUoxetine HCL 20 MG CAPSULE (PROzac) PO SCH (09:16)
[2019-05-10] MEDS: GABAPENTIN 300 MG CAPSULE PO SCH ×2 (09:17→21:24)
--- NOTE | 2019-05-10 11:27 | NUR ---
BLOOD SUGAR: BLOOD SUGAR TAKEN,WITH INSULIN COVERAGE GIVEN PER SLIDING SCALE. NO COMPLICATIONS NOTED.
[2019-05-10 12:00] VITALS: BP_SYST 134
--- NOTE | 2019-05-10 12:58 | NUR ---
RN ROUNDS: PATIENT STILL EATING LUNCH. NOT IN ANY DISTRESS.
--- NOTE | 2019-05-10 14:17 | NUR ---
RN ROUNDS: PATIENT SLEEPING DURING ROUNDS. NO ACUTE DISTRESS.
[2019-05-10 16:00] VITALS: BP_SYST 153
--- NOTE | 2019-05-10 16:00 | NUR ---
RN ROUNDS: NOT IN ANY DISTRESS. CONTINUE TO MONITOR.
--- NOTE | 2019-05-10 17:00 | NUR ---
RN NOTES: DR RUGGIERO CAME AND SAW PATIENT AND INFORMED MD PATIENT HAVING LOOSE WATERY STOOLS,WITH ORDERS FOR C-DIFF TEST.ENDORSED TO PROOF COINS INSPECTOR TO COLLECT A SAMPLE.
--- NOTE | 2019-05-10 17:27 | NUR ---
BLOOD SUGAR: BLOOD SUGAR TAKEN,WITH INSULIN COVERAGE GIVEN PER SLIDING SCALE. NO COMPLICATIONS NOTED.
--- NOTE | 2019-05-10 18:21 | NUR ---
CLOSING NOTES: PATIENT ATE DINNER WELL. CALL LIGHT WITH IN REACH. BED LOCKED AT LOWEST POSITION. BED ALARM ON. PRACTICE GUIDELINES MET THROUGH OUT THE SHIFT.
--- NOTE | 2019-05-10 19:35 | NUR ---
ROUNDS PATIENT RESTING COMFORTABLY IN BED, NOT IN DISTRESS, VITALS STABLE. DENIES ANY PAIN AND DISCOMFORT AT THIS TIME. ASSESSMENT DONE AND DOCUMENTED. SEE FLOWSHEET. NEEDS ATTENDED TO. SAFETY AND FALL MEASURES IN PLACED. CALL LIGHT PLACED WITHIN REACH.
[2019-05-10 19:48] VITALS: BP_SYST 121
--- NOTE | 2019-05-10 21:13 | NUR ---
MEDICATION DUE MEDICATIONS GIVEN SCHEDULED, TOLERATED WELL. WILL CONTINUE TO MONITOR.
--- NOTE | 2019-05-11 00:12 | NUR ---
PATIENT RESTING: Patient resting quietly. No acute distress noted. Vital signs within normal range.
[2019-05-11 00:26] VITALS: BP_SYST 134
[2019-05-11] MEDS: D5/0.45 NS 1,000 ML IV SCH ×2 (01:15→12:48)
--- NOTE | 2019-05-11 02:15 | NUR ---
ROUNDS PATIENT ASLEEP, RESPIRATIONS EVEN AND UNLABORED, WILL CONTINUE TO MONITOR.
--- NOTE | 2019-05-11 04:12 | NUR ---
PATIENT RESTING: Patient resting quietly. No acute distress noted. Vital signs within normal range.
[2019-05-11] MEDS: INSULIN REGULAR, HUMAN 100 UNITS/ML, 10 ML VIAL (humuLIN R) SUBCUT PRN ×3 (06:23→20:26)
--- NOTE | 2019-05-11 06:35 | NUR ---
CLOSING NOTES ACCU CHECK DONE, BLOOD SUGAR 161 WITH 2 UNITS REGULAR INSULIN GIVEN SUBCU PER SLIDING SCALE. ALL NEEDS ATTENDED TO. SAFETY MEASURES MAINTAINED. CALL LIGHT PLACED WITHIN REACH.
[2019-05-11 07:04] LABS: ALANINE AMINOTRANSFERASE 18 U/L (12-78); ALBUMIN 2.3 g/dL (3.4-4.8); ANION GAP 7 (5-15); ASPARTATE AMINOTRANSFERASE 13 U/L (10-37); BASOPHILS % (AUTO) 0.5 % (0.0-2.0); CALCIUM 7.8 mg/dL (8.4-11.0); CHLORIDE 106 mmol/L (98-107); CREATININE 2.55 mg/dL (0.55-1.30); EOSINOPHILS # (AUTO) 0.1 K/uL (0.0-0.4); EOSINOPHILS % (AUTO) 1.4 % (0.0-4.0); GLUCOSE 178 mg/dL (70-99); HEMATOCRIT 26.9 % (36-48); HEMOGLOBIN 8.8 g/dL (12.0-16.0); LYMPHOCYTES # (AUTO) 1.2 K/uL (1.0-5.5); LYMPHOCYTES % (AUTO) 24.1 % (20.5-51.5); MEAN CORPUSCULAR HEMOGLOBIN 31 pg (27-31); MEAN CORPUSCULAR HGB CONC 33 % (32-36); MEAN CORPUSCULAR VOLUME 94 fL (79.0-98.0); MONOCYTES # (AUTO) 0.4 K/uL (0.0-1.0); MONOCYTES % (AUTO) 7.4 % (1.7-9.3); NEUTROPHILS # (AUTO) 3.3 K/uL (1.8-7.7); NEUTROPHILS % (AUTO) 66.6 % (40.0-70.0); PLATELET COUNT (AUTO) 189 K/uL (130-430); POTASSIUM 3.6 mmol/L (3.5-5.1); RED BLOOD CELL COUNT(AUTO) 2.85 MIL/uL (4.2-6.2); RED CELL DISTRIBUTION WIDTH 17.2 % (9.0-15.0); SODIUM SERUM 134 mmol/L (136-145); TOTAL BILIRUBIN 0.3 mg/dL (0.0-1.0); UREA NITROGEN, BLOOD 38 mg/dL (8-21); WHITE BLOOD COUNT (AUTO) 4.9 K/uL (4.8-10.8)
--- NOTE | 2019-05-11 07:20 | NUR ---
AM ROUNDS: PATIENT AWAKE DURING ROUNDS. CALL LIGHT WITH IN REACH. BED LOCKED AT LOWEST POSITION. BED ALARM ON. NO NEEDS THIS TIME.
[2019-05-11 07:46] VITALS: BP_SYST 138
[2019-05-11] MEDS: FLUoxetine HCL 20 MG CAPSULE (PROzac) PO SCH (09:01)
[2019-05-11] MEDS: GABAPENTIN 300 MG CAPSULE PO SCH ×2 (09:02→20:22)
--- NOTE | 2019-05-11 09:02 | NUR ---
MED PASS: PATIENT TOOK HER ORAL MEDS WELL. NO ALLERGIC REACTIONS NOTED.
[2019-05-11] MEDS: hydrALAZINE HCL 25 MG TABLET PO SCH ×2 (09:03→20:27)
[2019-05-11] MEDS: THEOPHYLLINE ANHYDROUS 200 MG CAP.ER.24H PO SCH (09:09)
[2019-05-11 11:38] VITALS: BP_SYST 124
--- NOTE | 2019-05-11 12:50 | NUR ---
Rn Rounds: Patient having lunch during rounds. No problem.
--- NOTE | 2019-05-11 14:18 | NUR ---
RN ROUNDS: NOT IN ANY RESPIRATORY DISTRESS. CONTINUE TO MONITOR.
--- NOTE | 2019-05-11 15:13 | NUR ---
Transfer Care: Transfer care to [place],patient in stable condition.
--- NOTE | 2019-05-11 15:20 | NUR ---
[place] of care: pt in bed, no c/o pain, no sob, iv fluids infusing well. safety precaution in place. call light in reach,. will cont to monitor.
[2019-05-11 15:33] VITALS: BP_SYST 134
--- NOTE | 2019-05-11 17:00 | NUR ---
pt in bed, no c/o pain, no sob, iv fluids infusing well. safety precaution in place. call light in reach,. will cont to monitor.
--- NOTE | 2019-05-11 18:14 | NUR ---
closing notes, pt is stable no c/o pain, no sob, blood sugar at around 5 pm was 170, given 2 units of reg insulin. will endorse to night rn.
--- NOTE | 2019-05-11 19:10 | NUR ---
OPENING NOTE RECEIVED CARE OF PT AND SBAR REPORT. PT IS RESTING IN BED, AAOX1 (TO PERSON), STABLE, NO SIGNS OF RESPIRATORY DISTRESS NOTED. PT DENIES PAIN OR DISCOMFORT. NO S/S OF ACUTE DISTRESS. IVF ARE INFUSING AT ORDERED RATE WITH NO SIGN OF INFILTRATION TO IV SITE. SAFETY PRECAUTIONS ARE IN PLACE: BED IS LOCKED, ALARMED, AND AT THE LOWEST LEVEL, SIDE RAILS UP X3, CALL LIGHT IS WITH PT. WILL CONT TO MONITOR.
[2019-05-11 20:00] VITALS: BP_SYST 154
--- NOTE | 2019-05-11 20:27 | NUR ---
MED PASS/ACCUCHECK SCHEDULED MEDICATIONS ADMINISTERED ORDERED. ACCUCHECK SHOWS BLOOD SUGAR OF 211, 4 UNITS OF REGULAR INSULIN ADMINISTERED PER SLIDING SCALE. MEDICATIONS AND POTENTIAL SIDE EFFECTS EXPLAINED TO PT, PT CONFUSED. PT RESTING IN BED, NO S/S OF DISTRESS. SAFETY PRECAUTIONS REMAIN IN PLACE. WILL CONT TO MONITOR.
--- NOTE | 2019-05-11 22:34 | NUR ---
INCONTINENCE CARE/REPOSITIONED INCONTINENCE CARE RENDERED BY JUNIE CORBIN. PT REPOSITIONED FOR COMFORT USING PILLOW SUPPORT.
[2019-05-12] MEDS: D5/0.45 NS 1,000 ML IV SCH ×3 (00:46→20:40)
--- NOTE | 2019-05-12 00:46 | NUR ---
IVF BAG CHANGE NEW BAG OF ORDERED D51/2NS HUNG. IVF REGULATED TO 100 CC/HR. PT RESTING IN BED, EYES ARE OPEN. NO S/S OF DISTRESS. SAFETY MAINTAINED, CALL LIGHT IS WITH PT. WILL MONITOR.
[2019-05-12 01:12] VITALS: BP_SYST 140
--- NOTE | 2019-05-12 02:29 | NUR ---
RN ROUNDS: PATIENT SLEEPING, NO S/S ACUTE DISTRESS, BREATHING IS EVEN AND UNLABORED TO ROOM AIR WITH VISIBLE RISE AND FALL OF CHEST. IVF INFUSING AT ORDERED RATE. SAFETY PRECAUTIONS OBSERVED. WILL MONITOR.
--- NOTE | 2019-05-12 04:16 | NUR ---
RN ROUNDS: PT IS RESTING IN BED, STABLE, WITH NO SIGNS OF RESPIRATORY DISTRESS. NO SIGN OF PAIN, PT APPEARS COMFORTABLE AT THIS TIME. CALL LIGHT IS WITHIN REACH. BED IS LOCKED, ALARMED, AND AT THE LOWEST LEVEL. SIDE RAILS UP X3. ROOM CLOSE TO NURSES STATION. WILL MONITOR.
--- NOTE | 2019-05-12 06:23 | NUR ---
ACCUCHECK BLOOD SUGAR OF 126, NO INSULIN COVERAGE INDICATED PER SLIDING SCALE.
--- NOTE | 2019-05-12 06:35 | NUR ---
CLOSING NOTE PT RESTING IN BED, NO S/S OF ACUTE DISTRESS, BREATHING IS UNLABORED TO ROOM AIR. ALL NEEDS MET DURING SHIFT. SAFETY MAINTAINED. WILL CONTINUE TO MONITOR UNTIL PT CARE IS ENDORSED TO DAY SHIFT RN.
--- NOTE | 2019-05-12 07:30 | NUR ---
OPENING NOTE patient is resting in bed, no signs of distress at this time, educated human relations manager light system and plan of care, patient nodded her head, IV fluids running and patient tolerating well, assisted BLOOD TYPER with repositioning patient so she can eat her breakfast, no other needs at this time, fall/safety precautions in place.
[2019-05-12 08:04] VITALS: BP_SYST 149
[2019-05-12] MEDS: FLUoxetine HCL 20 MG CAPSULE (PROzac) PO SCH (08:55)
[2019-05-12] MEDS: GABAPENTIN 300 MG CAPSULE PO SCH ×2 (08:55→20:36)
[2019-05-12] MEDS: hydrALAZINE HCL 25 MG TABLET PO SCH ×2 (08:56→20:39)
[2019-05-12] MEDS: THEOPHYLLINE ANHYDROUS 200 MG CAP.ER.24H PO SCH (08:56)
--- NOTE | 2019-05-12 09:40 | NUR ---
cleaned patient patient was cleaned and given a bed bath, I assisted the MANAGER VAN with this, no other needs at this time, fall/safety precautions in place, IV fluids running.
--- NOTE | 2019-05-12 11:20 | NUR ---
blood sugar check blood sugar check done, no sliding scale needed at this time, no other needs at this time, fall/safety precautions in place, IV fluids running.
[2019-05-12 12:33] VITALS: BP_SYST 152
--- NOTE | 2019-05-12 13:15 | NUR ---
Nutrition F/U RD reviewed pt's current EMR record including diet Hx, physician notes, nursing notes, pertinent labs/meds/procedures, care trends, and care activity. Admitting Dx: Hypoglycemic reaction PMH: ALOC, DM, HTN, degenerative joint Dz, stroke, cholecystectomy per physician's notes Current Diet Order: CCHO x9 days Subjective Info: Pt seen resting in bed at time of RD visit. Pt reported eating "alright" today. Pt was not able to recall what she ate. Pt noted w/ advanced dementia. Bedscale wt taken: 213# (likely inaccurate d/t linens). Admission wt was 200# (05/07/19). Skin Integrity Comment: Vivek Scale: 16; per nursing notes, anterior L lower leg and R thigh w/ dry scab; buttocks w/ erythema Current % PO 83% average x15 meals -- improving, stable Estimated Energy Expenditure (kcals/day) 0625-2697 kcal/day (30-35 kcal/kg ABW for wound healing) Estimated Protein Required (g/day) 64-96 gm/day (1-1.5 gm/kg ABW for CKD and wound healing) Estimated Fluid Required (l/day) Defer to MD for CKD Problem/Etiology/Signs/Symptoms Increased nutrition needs related to metabolic demands as evidenced by estimated energy needs for malnutrition and wound healing. *ongoing Expected Outcomes/Goals - Monitor appetite and PO intake w/ goals of pt meeting greater than 85% of estimated nutritional needs, labs trending WNL, and skin integrity/wt maintenance. Dietitian Recommendations * Recommend continuing [facility] diet. * Encourage PO intake. Follow Up Low Risk: F/U in 7 days
--- NOTE | 2019-05-12 13:21 | NUR ---
Dietitian Recommendations * Recommend continuing CCHO diet. * Encourage PO intake. LP, RD Please refer to Nutrition F/U for details.
--- NOTE | 2019-05-12 13:32 | NUR ---
patient is resting in bed watching tv, IV fluids running, no signs of distress at this time, no other needs at this time, fall/safety precautions in place.
--- NOTE | 2019-05-12 13:36 | NUR ---
PHYSICAL THERAPY ORDER WAS RECEIVED. PATIENT IS ALREADY ON PHYSICAL THERAPY TREATMENT PROGRAM. CURRENT STATUS IS MAX TO TOTAL ASSIST WITH BED MOBILITY; INABILITY TO STAND, THEREFORE, SHE WILL NEED A MECHANICAL LIFT FOR SAFE TRANSFERS; INABILITY TO AMBULATE. PLEASE SEE THE PHYSICAL THERAPY EVALUATION AND TREATMENT NOTES.
--- NOTE | 2019-05-12 13:38 | NUR ---
PHYSICAL THERAPY CO-SIGN The Physical Therapy Progress Notes documented by Clean Out Driller Helper have been reviewed. Reviewed/Co-Signed by: Jonathon Ramey PT Documentation Done by: SADI MCDONOUGH PTA Addendum: 05/12/19 at 1341 by Jonathon Ramey PT Amended: Links added.
--- NOTE | 2019-05-12 13:39 | NUR ---
PHYSICAL THERAPY CO-SIGN The Physical Therapy Progress Notes documented by Concession Cashier have been reviewed. Reviewed/Co-Signed by: Jonathon Ramey PT Documentation Done by: AMALIA MOYA PTA Addendum: 05/12/19 at 1341 by Jonathon Ramey PT Amended: Links added.
--- NOTE | 2019-05-12 13:40 | NUR ---
PHYSICAL THERAPY CO-SIGN The Physical Therapy Progress Notes documented by Watershed Engineer have been reviewed. Reviewed/Co-Signed by: Jonathon Ramey PT Documentation Done by: SADI MCDONOUGH PTA Addendum: 05/12/19 at 1341 by Jonathon Ramey PT Amended: Links added.
--- NOTE | 2019-05-12 13:40 | NUR ---
PHYSICAL THERAPY CO-SIGN The Physical Therapy Progress Notes documented by Toll Relief Operator have been reviewed. Reviewed/Co-Signed by: Jonathon Ramey PT Documentation Done by: SADI MCDONOUGH PTA Addendum: 05/12/19 at 1341 by Jonathon Ramey PT Amended: Links added.
--- NOTE | 2019-05-12 15:00 | NUR ---
DC Planning: phoned [facility] main # [phone] sp with Crystal/customer relation and transferred me to FAHEEM Florez , JIMMY dept # [phone], fax [phone]. FAHEEM requesting auth for snf placement. FAHEEM faxed PT notes to Vikki per request. Vikki will review and call me back, CM to f/u in am.
--- NOTE | 2019-05-12 15:26 | NUR ---
patient watching tv resting in bed and watching tv, no signs of distress, IV fluids running, no needs addressed at this time, fall/safety precautions in place.
[2019-05-12 16:11] VITALS: BP_SYST 153
--- NOTE | 2019-05-12 16:30 | NUR ---
DC Planning: late entry: called pt's son/Jasper x2 and RN Muna tried to contact him as well. CM LVM x2 to notify him the pt is to be discharged to home with HH vs snf. There were no returning call. CM s/w pt, she said may be he son is in hospital. She does not know where. CM will arrange with insurance to send pt to snf since the pt will need PT and is unsafe to send the pt home.
[2019-05-12] MEDS: INSULIN REGULAR, HUMAN 100 UNITS/ML, 10 ML VIAL (humuLIN R) SUBCUT PRN ×2 (17:30→20:43)
--- NOTE | 2019-05-12 17:30 | NUR ---
blood sugar check blood sugar check done, sliding scale needed at this time, educated patient on med use and side effects, patient verbalized understanding, no other needs at this time, fall/safety precautions in place, IV fluids running.
--- NOTE | 2019-05-12 18:37 | NUR ---
closing note patient is resting in bed, no signs of distress at this time, IV fluids running and patient tolerating well, no other needs at this time, fall/safety precautions in place, Dr Araujo is at the station and I informed him that the CM and I have been calling the son and leaving him voicemail and he has not called back to discuss DC planning, will endorse report to noc shift nurse to continue with care and to keep trying to get a hold of the son, c diff sample was sent to LAB.
--- NOTE | 2019-05-12 19:15 | NUR ---
OPENING NOTE RECEIVED CARE OF PT AND SBAR REPORT. PT IS RESTING IN BED, AAOX1 (TO PERSON), STABLE, NO SIGNS OF RESPIRATORY DISTRESS NOTED. DR. RUGGIERO AT NURSES STATION, DISCHARGE ORDER NOTED, AWAITING CALL BACK FROM PT'S SON TO DETERMINE WHETHER PT WITH D/C HOME OR TO SNF. PT DENIES PAIN OR DISCOMFORT. NO S/S OF ACUTE DISTRESS. IVF ARE INFUSING AT ORDERED RATE WITH NO SIGN OF INFILTRATION TO IV SITE. SAFETY PRECAUTIONS ARE IN PLACE: BED IS LOCKED, ALARMED, AND AT THE LOWEST LEVEL, SIDE RAILS UP X3, CALL LIGHT IS WITH PT. WILL CONT TO MONITOR.
[2019-05-12 20:00] VITALS: BP_SYST 159
--- NOTE | 2019-05-12 20:43 | NUR ---
MED PASS/ACCUCHECK SCHEDULED MEDICATIONS ADMINISTERED ORDERED. ACCUCHECK SHOWS BLOOD SUGAR OF 156, 2 UNITS OF REGULAR INSULIN ADMINISTERED PER SLIDING SCALE. MEDICATIONS AND POTENTIAL SIDE EFFECTS EXPLAINED TO PT, PT CONFUSED. PT RESTING IN BED, NO S/S OF DISTRESS. SAFETY PRECAUTIONS REMAIN IN PLACE. WILL CONT TO MONITOR.
--- NOTE | 2019-05-12 23:38 | NUR ---
RN NOTE: INCONTINENCE CARE RENDERED BY JUNIE CORBIN. PT REPOSITIONED FOR COMFORT USING PILLOW SUPPORT. PT RESTING QUIETLY. NO S/S OF DISTRESS. SAFETY PRECAUTIONS MAINTAINED. WILL MONITOR.
[2019-05-13 01:43] VITALS: BP_SYST 148
--- NOTE | 2019-05-13 03:18 | NUR ---
RESTING: PT IS RESTING IN BED, STABLE, WITH NO SIGNS OF RESPIRATORY DISTRESS. NO SIGN OF PAIN, PT APPEARS COMFORTABLE AT THIS TIME, NO FACIAL GRIMACE NOTED. CALL LIGHT IS WITHIN REACH. BED IS LOCKED, ALARMED, AND AT THE LOWEST LEVEL. SIDE RAILS UP X3. ROOM CLOSE TO NURSES STATION. WILL CONT TO MONITOR.
--- NOTE | 2019-05-13 05:35 | NUR ---
IV RE-INSERTION: Complaining of pain to IV site. Restarted on LEFT WRIST 22 GAUGE. Successful after 1 attempts. Resumed current IVF of D51/2NS and regulated @ 100 per hour. Will observe for any signs of infiltration.
--- NOTE | 2019-05-13 06:16 | NUR ---
ACCUCHECK BLOOD SUGAR OF 106, NO INSULIN COVERAGE INDICATED PER SLIDING SCALE.
[2019-05-13] MEDS: D5/0.45 NS 1,000 ML IV SCH (06:17)
[2019-05-13 08:07] VITALS: BP_SYST 132
[2019-05-13] MEDS: THEOPHYLLINE ANHYDROUS 200 MG CAP.ER.24H PO SCH (08:28)
[2019-05-13] MEDS: GABAPENTIN 300 MG CAPSULE PO SCH (08:28)
[2019-05-13] MEDS: hydrALAZINE HCL 25 MG TABLET PO SCH (08:28)
[2019-05-13] MEDS: FLUoxetine HCL 20 MG CAPSULE (PROzac) PO SCH (08:28)
--- NOTE | 2019-05-13 10:28 | NUR ---
DC Planning: faxed referral package to Miki at [facility] fax # [phone], tel # [phone]. Miki will do the insurance screening and will call back with his acceptance decision. Addendum: 05/13/19 at 1315 by Britni Andrew RN ERROR ENTRY ABOVE, PLEASE DISREGARD.
--- NOTE | 2019-05-13 10:47 | NUR ---
PAGED PAGED CINTHIA WRIGHT AT [phone] SPOKE WITH HIS DENTAL MOLD MAKER.
--- NOTE | 2019-05-13 11:45 | NUR ---
Note Dr Araujo called back at 1105am and was notified that lab clled and stated pt was positive for C-Diff. Order for Falgyl 500mg PO for 2 weeks given. Britni MAYEN was called and notified as well. Pt maintained on contact isolation at this time (1040am).
--- NOTE | 2019-05-13 12:09 | NUR ---
DC Planning: Per Anayeli communication with dr. Araujo regarding C diff positive result. The md okay for pt to go home with PO Flagyl. Dr. Araujo will phone in to [facility] # [id number], on [address] [place] [address], tel # [phone] fax # [phone]. The information given to the md by Anayeli. Late entry: CM was able to contact pt's son/Jasper this am at 830am, informed him that the pt can be discharged to home. Son agreed with the dc and will come in for pt after lunch. Per Jasper, the pt's base line adl is bed bound, needs pao lift to get her out of bed to . She was unable to stand or do self transfer. The pt lives with son and his who is [facility] for 4 hrs per day. They have all needed DME: FWW, WC, [employer], B[employer]. CM/feliciap will arrange HH f/u upon discharge.
[2019-05-13] MEDS: INSULIN REGULAR, HUMAN 100 UNITS/ML, 10 ML VIAL (humuLIN R) SUBCUT PRN (12:22)
[2019-05-13 12:36] VITALS: BP_SYST 135
[2019-05-13] MEDS ORDERED: metroNIDAZOLE 500 MG TABLET PO SCH (14:00)
[2019-05-13 14:41] VITALS: BP_SYST 131
--- NOTE | 2019-05-13 15:00 | NUR ---
Note Pt's son Jasper and home health aide at bedside to take pt home. Family brought in their own wheelchair to take pt home. Pt's son and caregiver talking to Britni Keith RN and EMERALD dc'd pt's tele unit and returned it to network technician and right hand IV was dc'd - site benign. No bleeding/redness/drainage or tenderness at site noted at this time. Pt was assisted in getting dressed in street clothes and adult brief. Pt had no belongings here. Pt stable - no SOB/resp distress or pain/discomfort was noted at this time.
--- NOTE | 2019-05-13 15:15 | NUR ---
Note Pt's discharge instructions and prescriptions were given to pt's son Jasper at this time. Questions/concerns were answered at this time. Pt's son and career advisor checked side table and drawers for belongings. Pt's son Jasper assisted his mother into wheelchair at this time. Pt off the floor via wheelchair to car with her son Jasper and caregiver Avelina.
--- NOTE | 2019-05-14 10:46 | NUR ---
PHYSICAL THERAPY CO-SIGN The Physical Therapy Progress Notes documented by Program Schedule Clerk have been reviewed. Reviewed/Co-Signed by: Jonathon Ramey PT Documentation Done by: SADI MCDONOUGH PTA Addendum: 05/14/19 at 1047 by Jonathon Ramey PT Amended: Links added.
== END 2019-05-13 15:15 | disposition home health service (06) | DRG 70 ==
LOC: SED 19:44 → STU 21:16
PROVIDERS: ADMIT Family Medicine; ATTEND Family Medicine
DX: G93.41 Metabolic encephalopathy (principal); E43 Unspecified severe protein-calorie malnutrition; N13.30 Unspecified hydronephrosis; I44.7 Left bundle-branch block, unspecified; E11.649 Type 2 diabetes mellitus with hypoglycemia without coma; I13.10 Hypertensive heart and chronic kidney disease without heart failure, with stage 1 through stage 4 chronic kidney disease, or unspecified chronic kidney disease; I44.1 Atrioventricular block, second degree; N18.3 Chronic kidney disease, stage 3 (moderate); E11.22 Type 2 diabetes mellitus with diabetic chronic kidney disease; Z74.01 Bed confinement status; Z86.73 Personal history of transient ischemic attack (TIA), and cerebral infarction without residual deficits; Z90.49 Acquired absence of other specified parts of digestive tract; M19.90 Unspecified osteoarthritis, unspecified site; R00.1 Bradycardia, unspecified; T50.905A Adverse effect of unspecified drugs, medicaments and biological substances, initial encounter; Y92.89 Other specified places as the place of occurrence of the external cause; D63.8 Anemia in other chronic diseases classified elsewhere; Z68.36 Body mass index [BMI] 36.0-36.9, adult; Z79.84 Long term (current) use of oral hypoglycemic drugs
CPT/HCPCS: 36415; 71045; 76770; 80048; 80053; 80061; 82272; 82550-TC; 82607; 82728; 82746; 82962; 83540-TC; 83550-TC; 83605; 83735-TC; 83880; 84439; 84443-TC; 84484; 85025; 85610-TC; 85730-TC; 87040-TC; 87081; 87230-TC; 93005; 93306; 96372; 97110-GP; 97530-GP; 99285; G0378; J1265; J1815; J2354; J3475; J7030